=== PATIENT | female | born 1960 | race Caucasian/White ===

== ENCOUNTER → 2018-10-25 09:37 | Outpatient (CLI) | payer OTHER, MEDICAID, SELFPAY ==
[2018-10-25 11:00] LABS: Cholesterol 264 mg/dL (140-199); HDL Cholesterol 79 mg/dL (40-60); LDL Cholesterol Calculated 144 mg/dL (<100); Triglycerides 204 mg/dL (35-150)
== END ==
PROVIDERS: Registered Nurse; PCP Family Medicine; Visit Provider Family Medicine
DX: I10 Essential (primary) hypertension (principal)
CPT/HCPCS: 36415; 80061

== ENCOUNTER → 2018-12-06 09:19 | Outpatient (CLI) | payer OTHER, SELFPAY ==
[2018-12-06 11:01] LABS: Alanine Aminotransferase 37 IU/L (9-52); Albumin 4.6 g/dL (3.5-5.0); Albumin Globulin Ratio 1.6 (1.0-2.8); Alkaline Phosphatase 57 U/L (38-126); Aspartate Aminotransferase 31 IU/L (14-36); BUN Creatinine Ratio 24.3 (6-22); Bilirubin Total 0.3 mg/dL (0.2-1.3); Blood Urea Nitrogen 17 mg/dL (7-17); Calcium 9.7 mg/dL (8.4-10.2); Carbon Dioxide 30 mmol/L (22-32); Chloride 98 mmol/L (98-107); Estimated Glomerular Filt Rate > 60.0 mL/min (>60); Globulin 2.8 g/dL (1.7-4.1); Glucose 109 mg/dL (70-100); HEMOLYSIS < 15 (0-50); Sodium 138 mmol/L (137-145); Total Protein 7.4 g/dL (6.3-8.2)
== END ==
PROVIDERS: PCP Family Medicine; Visit Provider Registered Nurse
DX: I10 Essential (primary) hypertension (principal)
CPT/HCPCS: 36415; 80053

== ENCOUNTER → 2019-01-18 08:58 | Outpatient (CLI) | payer OTHER, SELFPAY ==
--- NOTE | 2019-01-18 09:00 | DI.RAD.S_ITS ---
PROCEDURE: XR THORACIC SPINE 3V INDICATIONS: s/p fall right arm, hip, leg pain TECHNIQUE: 2 views of the thoracic spine were acquired. COMPARISON: None. FINDINGS: Bones: No fractures or dislocations. No suspicious bony lesions. 12 pairs of ribs are noted, and appear intact where visualized. Soft tissues: No paravertebral stripe thickening. IMPRESSION: Thoracic spine without acute osseous abnormalities. Dictated by: Kwame Starks M.D. on 01/18/2019 at 10:16 Approved by: Kwame Starks M.D. on 01/18/2019 at 10:17
--- NOTE | 2019-01-18 09:00 | DI.RAD.S_ITS ---
PROCEDURE: XR LUMBAR SPINE MIN 4V INDICATIONS: s/p fall right arm, hip, leg pain TECHNIQUE: 2 views of the lumbar spine acquired. COMPARISON: None. FINDINGS: Bones: 5 nonrib-bearing vertebrae are present. There is normal bony alignment. No acute vertebral body compression fractures. Multilevel lumbar spondylosis throughout the visualized lumbar spine, but most pronounced at L5-S1. Mid and lower lumbar facet arthropathy. No suspicious bony lesions. Soft tissues: Overlying bowel gas pattern is normal. No suspicious soft tissue calcifications. Multiple surgical clips are noted in the pelvis. IMPRESSION: Lumbar spine without acute osseous abnormalities. Multilevel lumbar spondylosis. Dictated by: Kwame Starks M.D. on 01/18/2019 at 10:18 Approved by: Kwame Starks M.D. on 01/18/2019 at 10:19
--- NOTE | 2019-01-18 09:00 | DI.RAD.S_ITS ---
PROCEDURE: XR CERVICAL SPINE 2V OR 3V INDICATIONS: s/p fall right arm, hip, leg pain TECHNIQUE: 3 view(s) of the cervical spine were acquired. COMPARISON: None. FINDINGS: Bones: No fractures or dislocations to the T2 level. The lateral masses of C1 appear intact on the odontoid view. No suspicious bony lesions. Straightening of normal cervical lordosis. Multilevel cervical spondylosis most pronounced at C5-6. Soft tissues: No prevertebral soft tissue swelling. Visualized lung apices are clear. IMPRESSION: Cervical spine without acute osseous abnormalities. Minimal straightening of normal cervical lordosis likely related to positioning and/or concurrent muscle spasms. Cervical spondylosis most pronounced at C5-6. Dictated by: Kwame Starks M.D. on 01/18/2019 at 10:19 Approved by: Kwame Starks M.D. on 01/18/2019 at 10:21
== END ==
PROVIDERS: PCP Family Medicine; Visit Provider Nurse Practitioner
DX: M79.601 Pain in right arm (principal); M25.551 Pain in right hip; M79.604 Pain in right leg; M47.816 Spondylosis without myelopathy or radiculopathy, lumbar region; M47.817 Spondylosis without myelopathy or radiculopathy, lumbosacral region; M47.812 Spondylosis without myelopathy or radiculopathy, cervical region
CPT/HCPCS: 72040; 72072; 72100

== ENCOUNTER → 2019-06-18 13:14 | Outpatient (CLI) | payer OTHER, SELFPAY ==
--- NOTE | 2019-06-18 | DI.MRI.S_ITS ---
PROCEDURE: MR KNEE RT WO CON INDICATIONS: Pain in right knee TECHNIQUE: Noncontrast sagittal PD fast spin echo and T2 fast spin echo with fat saturation, sagittal 3-D FLASH with fat saturation; coronal T1 spin echo and PD fast spin echo with fat saturation, and axial PD fast spin echo with fat saturation through the knee. COMPARISON: None. FINDINGS: Image quality: Excellent. Menisci: Year-old [place] T2 signal intensity traverses the posterior horn medial meniscus, demonstrating inferior articular surface extension, indicating oblique tear. There is medial extrusion of the medial meniscus. Lateral meniscus is intact. Cruciate ligaments: The anterior and posterior cruciate ligaments appear intact. Medial structures: The medial collateral ligament appears intact. Visualized portions of the pes anserinus tendons appear normal. Small amount of medial bursal fluid. Lateral structures: The lateral collateral ligament, long and short heads of the biceps femoris tendon appear intact. The popliteus tendon appears normal. Iliotibial band appears normal. Anterior structures: The quadriceps and patellar tendons appear intact. Patellar alignment is normal. No femoral trochlear dysplasia or ventral trochlear prominence. No edema in the infrapatellar fat pad. Bones and cartilage: No bone marrow contusions or fractures. There is mild ill-defined T2 signal elevation within the weight-bearing aspect of the medial tibial plateau. There is moderate diffuse articular cartilage loss overlying the weightbearing aspects of the medial femoral condyle and medial tibial plateau. Mild diffuse articular cartilage loss overlies the weightbearing aspects of the lateral femoral condyle and lateral tibial plateau. Joint space: There is physiologic knee joint fluid. Trace Castro's cyst. Normal appearing synovial plicae are incidentally noted. IMPRESSION: 1. Tricompartmental osteophyte is with associated articular cartilage loss. 2. Medial meniscal tearing and extrusion. 3. Mild medial bursitis. Dictated by: Taylor House M.D. on 06/18/2019 at 14:58 Approved by: aTylor House M.D. on 06/18/2019 at 15:00
== END ==
PROVIDERS: PCP Family Medicine; Visit Provider Physician Assistant
DX: S83.241A Other tear of medial meniscus, current injury, right knee, initial encounter (principal)
CPT/HCPCS: 73721

== ENCOUNTER → 2020-07-18 10:29 | Outpatient (CLI) | payer OTHER, MEDICAID, SELFPAY ==
[2020-07-18 11:23] LABS: Add Manual Diff / Slide Review NO; Basophils Absolute Auto 100 /uL (0-100); Basophils Percent Auto 1.2 % (0-2); Eosinophils Absolute Auto 200 /uL (0-450); Eosinophils Percent Auto 5.4 % (2-4); Hematocrit 38.6 % (36-46); Hemoglobin 13.2 g/dL (12.0-16.0); Lymphocytes Absolute Auto 1400 /uL (1100-4500); Lymphocytes Percent Auto 32.2 % (25-40); Mean Corpuscular HGB Conc 34.2 % (30-36); Mean Corpuscular Volume 90.5 fL (80-100); Monocytes Absolute Auto 400 /uL (0-900); Monocytes Percent Auto 8.1 % (3-14); Neutrophils Absolute Auto 2300 /uL (1500-7000); Neutrophils Percent Auto 53.1 % (50-75); Platelet Count 129 X10^3/uL (150-400); Red Blood Cell Count 4.27 X10^6/uL (4.0-5.2); Red Cell Distribution Width 13.1 % (11.6-14.8); White Blood Cell Count 4.4 X10^3/uL (4.5-11.0)
[2020-07-18 11:34] LABS: Alanine Aminotransferase 27 IU/L (<35); Albumin 4.5 g/dL (3.5-5.0); Albumin Globulin Ratio 1.6 (1.0-2.8); Alkaline Phosphatase 51 U/L (38-126); Aspartate Aminotransferase 30 IU/L (14-36); BUN Creatinine Ratio 24.3 (6-22); Bilirubin Total 0.7 mg/dL (0.2-1.3); Blood Urea Nitrogen 17 mg/dL (7-17); Calcium 9.2 mg/dL (8.4-10.2); Carbon Dioxide 30 mmol/L (22-32); Chloride 102 mmol/L (98-107); Estimated Glomerular Filt Rate > 60.0 mL/min (>60); Globulin 2.8 g/dL (1.7-4.1); Glucose 110 mg/dL (70-100); HEMOLYSIS < 15 (0-50); Sodium 138 mmol/L (137-145); Total Protein 7.3 g/dL (6.3-8.2)
== END ==
PROVIDERS: PCP Family Medicine; Referring Provider Nurse Practitioner; Visit Provider Nurse Practitioner
DX: I10 Essential (primary) hypertension (principal)
CPT/HCPCS: 36415; 80053; 85025

== ENCOUNTER 2020-08-31 22:37 | Emergency (ER) | payer OTHER, MEDICAID, SELFPAY ==
[2020-08-31 22:44] VITALS: BP 191/114; PULSE 76; O2SAT 98
[2020-08-31 22:53] VITALS: BP 191/114; PULSE 75; RESP 12; TEMP 36.6; O2SAT 100; BMI 24.7
[2020-08-31 23:00] VITALS: PULSE 72; RESP 11; O2SAT 100
[2020-08-31 23:01] VITALS: BP 182/94; PULSE 74; RESP 10; O2SAT 99
--- NOTE | 2020-08-31 23:03 | DI.RAD.S_ITS ---
PROCEDURE: XR CHEST 1V INDICATIONS: Palpitations TECHNIQUE: One view of the chest was acquired. COMPARISON: None. FINDINGS: Surgical changes and devices: None. Lungs and pleura: Lungs are clear. No pleural effusions or pneumothorax. Mediastinum: Mediastinal contours appear normal. Heart size is normal. Bones and chest wall: No suspicious bony lesions. Overlying soft tissues appear unremarkable. IMPRESSION: No acute cardiopulmonary disease process. Dictated by: Ambar Gallego MD, PhD on 09/01/2020 at 8:50 Approved by: Ambar Gallego MD, PhD on 09/01/2020 at 8:50
--- NOTE | 2020-08-31 23:19 | ED.ARRPALP ---
HPI - Arrhythmia/Palpitations General Chief Complaint: Dizziness Stated Complaint: light headed, heart palpitations Time Seen by Provider: 08/31/20 23:02 Source: patient and family Mode of arrival: Ambulatory Limitations: no limitations History of Present Illness HPI narrative: Patient here with , complains 4 weeks of constant generalized weakness fatigue/no energy with intermittent palpitations and dizziness. Patient thought maybe her citalopram that was prescribed in April of this year is affecting her. She did see her family doctor/Dr. Anderson, this past 4 weeks and states they were just monitoring or blood pressure. Denies any chest pain. No chest pain. No dyspnea. No unilateral numbness tingling or weakness. No slurred speech or facial droop her confusion. No urinary complaints. Patient states she stopped taking her losartan 2 days ago. She takes 12.5 mg daily. She thought that may be affecting her because she thought her blood pressure was low. Last time she took her blood pressure and heart rate it was systolic 148 with a pulse of 48. Denies any thyroid disease. Patient states [address] [facility] [address] [place], she underwent ablation for SVT. Has been doing well since then. No recent Holter monitor. Patient here tonight because she felt dizziness worse tonight. Patient was at rest. No dizziness at this time. Blood pressure noted on arrival has improved. Again patient has been off her losartan complaint: palpitations Related Data Home Medications Medication Instructions Recorded Confirmed [CoQ10] #0 02/01/17 08/04/20 [Vitamin D3] #0 02/01/17 08/04/20 melatonin 10 mg PO QDAY #0 02/01/17 08/04/20 zolpidem 5 mg tablet 5 mg PO BEDTIME PRN 08/04/20 08/04/20 Previous Rx's Medication Instructions Recorded estradiol 1 mg tablet 1 mg PO QDAY #90 tab 06/11/19 lorazepam 0.5 mg tablet See Rx Instructions .ROUTE 06/03/20 .COMPLEX #30 tablet prednisone 20 mg tablet 20 mg PO DAILY #5 tab 08/04/20 citalopram 20 mg tablet 30 mg PO DAILY #60 tab 08/18/20 losartan 25 mg tablet 25 mg PO DAILY #60 tab 08/18/20 Allergies Allergy/AdvReac Type Severity Reaction Status Date / Time acetaminophen [From PERCOCET] Allergy Unknown Verified 08/04/20 09:22 erythromycin base Allergy Unknown Verified 08/04/20 09:22 [ERYTHROMYCIN BASE] oxycodone [From PERCOCET] Allergy Unknown Verified 08/04/20 09:22 Sulfa (Sulfonamide Allergy Unknown Verified 08/04/20 09:22 Antibiotics) [SULFA (SULFONAMIDE ANTIBIOTICS)] Review of Systems Review of Systems Narrative: GENERAL: Denies chills, complaining fatigue, malaise, denies fever, sweats. HEENT: Denies sinus pain, ear pain, sore throat, difficulty swallowing RESPIRATORY: Denies dyspnea, cough CARDIOVASCULAR: Denies chest pain, complains palpitations, denies edema, GASTROINTESTINAL: Denies nausea, vomiting, abdominal pain, diarrhea, constipation, melena. : Denies dysuria, frequency, hematuria MUSCULOSKELETAL: denies muscle or bony pain SKIN: Denies rash, skin lesions NEUROLOGIC: Denies weakness, headache, numbness, change in speech, confusion, complains dizziness PSYCHIATRIC: No SI or HI or hallucinations ROS Unobtainable: All systems reviewed & are unremarkable except as noted in HPI and below Patient History Medical History Anxiety and depression (Chronic 02/01/17) Chicken pox (Resolved) Constipation, chronic (Chronic 2003) Depression (Chronic) Eczema (Chronic) Fibroids (Resolved) Hemorrhoids (Chronic 1980) Herpes (Chronic 1979) History of bilateral breast implants (Resolved 02/21/17) History of cardiac radiofrequency ablation (RFA) (Chronic 02/01/17) History of supraventricular tachycardia (Chronic 02/01/17) Measles (Resolved) Mononucleosis (Resolved 1978) Mumps (Resolved) Psoriasis (Chronic 2011) PTSD (post-traumatic stress disorder) (Chronic 2009) SVT (supraventricular tachycardia) (Resolved 2014) Surgical History Anesthesia (Resolved) History of bilateral salpingo-oophorectomy (BSO) (Resolved 2004) History of breast augmentation (Resolved 2005) History of breast augmentation (Resolved 2013) History of cardiac radiofrequency ablation (RFA) (Resolved 2014) Status post hysterectomy (Resolved 2003) Family History Father Esophageal varices Grandmother ALS (amyotrophic lateral sclerosis) Grandfather Emphysema/COPD Grandmother Emphysema/COPD Brother No problems noted. Grandfather No problems noted. Mother Hearing loss Vision loss Sister No problems noted. Sister No problems noted. Social History Smoking Status: Never smoker alcohol intake: current substance use type: does not use Smoking Status: Never smoker Substance Use Type: does not use Exam Narrative Exam Narrative: GENERAL: patient appears stated age. Well-nourished, well-developed patient, in no distress, not toxic not dyspneic HEAD: Normocephalic. EYES: Pupils equal round and reactive. No scleral icterus. No injection no discharge ENT: Mucous membranes moist. No drooling no tongue elevation no trismus no malocclusion NECK: Trachea midline. Non tender, no thyromegaly CARDIOVASCULAR: Regular rate and rhythm without murmurs, gallops, or rubs. RESPIRATORY: Clear to auscultation. Breath sounds equal bilaterally. No wheezes, rales, or rhonchi. GASTROINTESTINAL: Abdomen soft, non-tender, nondistended. EXTREMITIES: No gross deformities. BACK: Nontender without deformity or crepitance. No flank tenderness. NEURO: AOx4. Clear speech no facial droop light touch intact to bilateral face hands and legs strong equal colorectal surgeon SKIN: Warm and dry PSYCH: Not anxious, is cooperative Initial Vital Signs Initial Vital Signs: Vital Signs Pulse Rate 76 08/31/20 22:44 Blood Pressure 191/114 H 08/31/20 22:44 Pulse Oximetry 98 08/31/20 22:44 Course Course Course Narrative: Patient had episode here of sensation of electrical sensation floating from her head down to her feet both sides. Orders Ordered: ED Orders 08/31/20 23:03 XR chest 1V Stat EKG-12 Lead Stat 08/31/20 23:30 Complete Blood Count AUTO DIFF Stat Comprehensive Metabolic Panel Stat D Dimer Stat Magnesium Stat Partial Thromboplastin Time Stat Prothrombin Time INR Stat Thyroid Stimulating Hormone Stat Troponin & CK Cardiac Panel Stat 08/31/20 23:37 CT head/brain wo con Stat Discontinued Medications Losartan Potassium (Cozaar) 12.5 mg PO NOW ONE Stop: 08/31/20 23:17 Last Admin: 08/31/20 23:45 Dose: 12.5 mg Documented by: DEZ Reevaluation(s) Reevaluation #1: Reviewed laboratory studies and imaging with patient and . Likely source at this time is hypothyroidism. Will need to follow-up with family doctor this week. To maybe start Synthroid. Also may need a Holter monitor scheduling with family doctor. Blood pressure improving after losartan. They desire discharge home. Time: 00:46 Consultations Consultation #1: Spoke with primary care medium cycle salesperson for Dr. Anderson, spoke with Dr. Flores, he will inform Dr. Anderson about results and visit tonight. Review of thyroid studies as well as possible Holter monitor outpatient. Time: 00:47 Vital Signs Vital signs: Vital Signs - 8 hr 08/31/20 22:44 08/31/20 22:53 08/31/20 23:00 Temperature 97.9 F Pulse Rate 76 75 72 Respiratory Rate 12 11 L Blood Pressure 191/114 H 191/114 H Pulse Oximetry 98 100 100 08/31/20 23:01 08/31/20 23:45 08/31/20 23:57 Temperature Pulse Rate 74 64 Respiratory Rate 10 L 22 Blood Pressure 182/94 H 168/102 H Pulse Oximetry 99 98 09/01/20 00:00 09/01/20 00:30 Temperature Pulse Rate 57 L 62 Respiratory Rate 12 16 Blood Pressure 155/87 H 166/81 H Pulse Oximetry 94 95 MDM - Arrhythmia/Palpitations Differential Diagnosis Differential diagnosis: Likely palpitations, anxiety, sinus tachycardia, artial fibrillation, artial flutter, ventricular premature beats, supraventricular tachycardia, WPW and other Lab Data Attestation: I reviewed the patient's lab results. Result diagrams: 08/31/20 23:30 08/31/20 23:30 Labs: Lab Results 08/31/20 08/31/20 08/31/20 Range/Units 23:30 23:30 23:30 WBC 4.7 (4.5-11.0) X10^3/uL RBC 4.14 (4.0-5.2) X10^6/uL Hgb 13.0 (12.0-16.0) g/dL Hct 38.2 (36-46) % MCV 92.2 (80-100) fL MCH 31.5 (26-34) PG MCHC 34.1 (30-36) % RDW 13.1 (11.6-14.8) % Plt Count 127 L (150-400) X10^3/uL Neut % (Auto) 51.7 (50-75) % Lymph % (Auto) 31.4 (25-40) % [place] % (Auto) 9.5 (3-14) % Eos % (Auto) 6.3 H (2-4) % Baso % (Auto) 1.1 (0-2) % Neut # (Auto) 2400 (8403-9829) /uL Lymph # (Auto) 1500 (3431-3527) /uL [place] # (Auto) 400 (0-900) /uL Eos # (Auto) 300 (0-450) /uL Baso # (Auto) 100 (0-100) /uL PT 10.9 (10.1-12.7) SECONDS INR 0.9 (0.9-1.3) APTT 32 (26.4-36.2) SECONDS D-Dimer < 200 (<230) ng/mL Sodium 138 (137-145) mmol/L Potassium 3.3 L (3.4-5.1) mmol/L Chloride 105 (98-107) mmol/L Carbon Dioxide 29 (22-32) mmol/L BUN 17 (7-17) mg/dL Creatinine 0.69 (0.52-1.04) mg/dL Estimated GFR > 60.0 (>60) mL/min BUN/Creatinine Ratio 24.6 H (6-22) Glucose 131 H (70-100) mg/dL Calcium 9.4 (8.4-10.2) mg/dL Magnesium 2.1 (1.6-2.3) mg/dL Total Bilirubin 0.4 (0.2-1.3) mg/dL AST 30 (14-36) IU/L ALT 26 (<35) IU/L Alkaline Phosphatase 57 (38-126) U/L Total Creatine Kinase 104 (30-135) U/L CK-MB (CK-2) 1.01 (<2.37) ng/mL CK-MB (CK-2) Rel Index 1.0 L (1.5-5.0) % Troponin I < 0.012 (0.01-0.034) ng/mL Total Protein 7.2 (6.3-8.2) g/dL Albumin 4.3 (3.5-5.0) g/dL Globulin 2.9 (1.7-4.1) g/dL Albumin/Globulin Ratio 1.5 (1.0-2.8) TSH (0.47-4.68) uIU/mL 08/31/20 Range/Units 23:30 WBC (4.5-11.0) X10^3/uL RBC (4.0-5.2) X10^6/uL Hgb (12.0-16.0) g/dL Hct (36-46) % MCV (80-100) fL MCH (26-34) PG MCHC (30-36) % RDW (11.6-14.8) % Plt Count (150-400) X10^3/uL Neut % (Auto) (50-75) % Lymph % (Auto) (25-40) % [place] % (Auto) (3-14) % Eos % (Auto) (2-4) % Baso % (Auto) (0-2) % Neut # (Auto) (2490-4779) /uL Lymph # (Auto) (3113-1225) /uL [place] # (Auto) (0-900) /uL Eos # (Auto) (0-450) /uL Baso # (Auto) (0-100) /uL PT (10.1-12.7) SECONDS INR (0.9-1.3) APTT (26.4-36.2) SECONDS D-Dimer (<230) ng/mL Sodium (137-145) mmol/L Potassium (3.4-5.1) mmol/L Chloride (98-107) mmol/L Carbon Dioxide (22-32) mmol/L BUN (7-17) mg/dL Creatinine (0.52-1.04) mg/dL Estimated GFR (>60) mL/min BUN/Creatinine Ratio (6-22) Glucose (70-100) mg/dL Calcium (8.4-10.2) mg/dL Magnesium (1.6-2.3) mg/dL Total Bilirubin (0.2-1.3) mg/dL AST (14-36) IU/L ALT (<35) IU/L Alkaline Phosphatase (38-126) U/L Total Creatine Kinase (30-135) U/L CK-MB (CK-2) (<2.37) ng/mL CK-MB (CK-2) Rel Index (1.5-5.0) % Troponin I (0.01-0.034) ng/mL Total Protein (6.3-8.2) g/dL Albumin (3.5-5.0) g/dL Globulin (1.7-4.1) g/dL Albumin/Globulin Ratio (1.0-2.8) TSH 9.56 H (0.47-4.68) uIU/mL Urine Dip Bedside Urine Glucose Negative Bedside Urine Bilirubin - Negative Bedside Urine Ketone - Negative Urine Specific [place] 1.015 Bedside Urine Occult Blood - Negative Bedside Urine pH 6.5 Bedside Urine Protein - Negative Bedside Urine Urobilinogen - Negative Bedside Urine Nitrite - Negative Bedside Urine Leukocytes - Negative Esterase Imaging Data Chest x-ray: Radiologist's Impresson: No acute process/no significant abnormalities. Lungs are clear without acute infiltrates, heart size is normal. No acute bony abnormalities CT scan - head: Radiologist's Impresson: No significant abnormalities. ECG Data Attestation: I personally reviewed and interpreted this ECG as follows: Interpretation: Normal sinus rhythm with sinus arrhythmia no ST elevation or depression rate 78 MDM Narrative Medical decision making narrative: Appropriate for discharge home. Reviewed results with primary care medium cycle salesperson, likely source of symptoms. Agrees for discharge home and follow-up with primary care. Dr. Anderson to start Synthroid/evaluate patient 1st Discharge Plan Departure Patient Disposition: Home Clinical Impression: Heart palpitations Hypothyroidism Qualifiers: Hypothyroidism type: unspecified Qualified Code(s): E03.9 - Hypothyroidism, unspecified Discharge Date/Time: 09/01/20 01:01 Instructions: DI for Hypothyroidism, DI for Palpitations Activity Restrictions/Additional Instructions: Please resume taking your blood pressure medication. See family doctor this week for recheck and evaluation of thyroid studies and for possible scheduled for outpatient Holter monitor. Call your hide spreader as well for follow-up regarding palpitations. Return if worse or if any questions or concerns. Prescriptions: No Action zolpidem 5 mg tablet 5 mg PO BEDTIME PRNRF: 0 prednisone 20 mg tablet 20 mg PO DAILY Qty: 5 RF: 0 [CoQ10] Qty: 0 RF: 0 [Vitamin D3] Qty: 0 RF: 0 melatonin 10 MG tablet 10 mg PO QDAY Qty: 0 RF: 0 estradiol 1 mg tablet 1 mg PO QDAY Qty: 90 RF: 5 lorazepam 0.5 mg tablet See Rx Instructions .ROUTE .COMPLEX Qty: 30 RF: 0 losartan 25 mg tablet 25 mg PO DAILY Qty: 60 RF: 0 citalopram 20 mg tablet 30 mg PO DAILY Qty: 60 RF: 0 Referrals: Kalani Anderson MD [Primary Care Provider] -
--- NOTE | 2020-08-31 23:37 | DI.CT.S_ITS ---
PROCEDURE: CT HEAD/BRAIN WO CON INDICATIONS: Dizziness TECHNIQUE: Noncontrast 4.5 mm thick angled axial sections acquired from the foramen magnum to the vertex, with coronal and sagittal reformats. For radiation dose reduction, the following was used: automated exposure control, adjustment of mA and/or kV according to patient size. COMPARISON: None. FINDINGS: Image quality: Excellent. CSF spaces: Basal cisterns are patent. No extra-axial fluid collections. Ventricles are normal in size and shape. Brain: No midline shift. No intracranial masses or hemorrhage. Cruz-white matter interface is normal. Skull and face: Calvarium and visualized facial bones are intact, without suspicious lesions. Sinuses: Visualized sinuses and mastoids are clear. IMPRESSION: No acute intracranial disease process. Dictated by: Ambar Gallego MD, PhD on 09/01/2020 at 7:17 Approved by: Ambar Gallego MD, PhD on 09/01/2020 at 7:18
[2020-08-31 23:45] VITALS: BP 168/102
[2020-08-31] MEDS: LOSARTAN 25 MG TABLET 12.5 MG PO (23:45)
[2020-08-31 23:46] LABS: Add Manual Diff / Slide Review NO; Basophils Absolute Auto 100 /uL (0-100); Basophils Percent Auto 1.1 % (0-2); Eosinophils Absolute Auto 300 /uL (0-450); Eosinophils Percent Auto 6.3 % (2-4); Hematocrit 38.2 % (36-46); Lymphocytes Absolute Auto 1500 /uL (1100-4500); Lymphocytes Percent Auto 31.4 % (25-40); Mean Corpuscular HGB Conc 34.1 % (30-36); Mean Corpuscular Hemoglobin 31.5 PG (26-34); Mean Corpuscular Volume 92.2 fL (80-100); Monocytes Absolute Auto 400 /uL (0-900); Monocytes Percent Auto 9.5 % (3-14); Neutrophils Absolute Auto 2400 /uL (1500-7000); Neutrophils Percent Auto 51.7 % (50-75); Platelet Count 127 X10^3/uL (150-400); Red Blood Cell Count 4.14 X10^6/uL (4.0-5.2); Red Cell Distribution Width 13.1 % (11.6-14.8); White Blood Cell Count 4.7 X10^3/uL (4.5-11.0)
[2020-08-31 23:47] LABS: INR 0.9 (0.9-1.3); Prothrombin Time 10.9 SECONDS (10.1-12.7)
[2020-08-31 23:50] LABS: PTT Partial Thromboplastin Tim 32 SECONDS (26.4-36.2)
[2020-08-31 23:51] LABS: D Dimer < 200 ng/mL (<230)
[2020-08-31 23:52] LABS: Alanine Aminotransferase 26 IU/L (<35); Albumin 4.3 g/dL (3.5-5.0); Albumin Globulin Ratio 1.5 (1.0-2.8); Alkaline Phosphatase 57 U/L (38-126); Aspartate Aminotransferase 30 IU/L (14-36); BUN Creatinine Ratio 24.6 (6-22); Bilirubin Total 0.4 mg/dL (0.2-1.3); Blood Urea Nitrogen 17 mg/dL (7-17); Calcium 9.4 mg/dL (8.4-10.2); Carbon Dioxide 29 mmol/L (22-32); Chloride 105 mmol/L (98-107); Creatine Kinase 104 U/L (30-135); Estimated Glomerular Filt Rate > 60.0 mL/min (>60); Globulin 2.9 g/dL (1.7-4.1); Glucose 131 mg/dL (70-100); HEMOLYSIS < 15 (0-50); Magnesium 2.1 mg/dL (1.6-2.3); Potassium 3.3 mmol/L (3.4-5.1); Sodium 138 mmol/L (137-145); Total Protein 7.2 g/dL (6.3-8.2)
[2020-08-31 23:57] VITALS: PULSE 64; RESP 22; O2SAT 98
[2020-09-01] VITALS: BP 155/87; PULSE 57; RESP 12; O2SAT 94
[2020-09-01 00:04] LABS: Troponin I < 0.012 ng/mL (0.01-0.034)
[2020-09-01 00:07] LABS: Creatine Kinase MB 1.01 ng/mL (<2.37)
[2020-09-01 00:30] VITALS: BP 166/81; PULSE 62; RESP 16; O2SAT 95
[2020-09-01 00:32] LABS: Thyroid Stimulating Hormone 9.56 uIU/mL (0.47-4.68)
== END 2020-09-01 01:01 | disposition home or self-care (01) ==
PROVIDERS: Emergency Provider Emergency Medicine; PCP Family Medicine
DX: R00.2 Palpitations (principal); E03.9 Hypothyroidism, unspecified
CPT/HCPCS: 36415; 70450; 71045; 80053; 81003; 82550; 82553; 83735; 84443; 84484; 85025; 85379; 85610; 85730; 93005; 99284

== ENCOUNTER → 2020-09-01 13:04 | Outpatient (CLI) | payer OTHER, MEDICAID, SELFPAY ==
[2020-09-01 13:38] LABS: Free T3, Triiodothyronine Free 3.53 pg/mL (2.77-5.27); Free T4, Direct Thyroxine 1.03 ng/dL (0.78-2.19)
== END ==
PROVIDERS: PCP Family Medicine; Visit Provider Family Medicine
DX: E03.9 Hypothyroidism, unspecified (principal); R00.2 Palpitations
CPT/HCPCS: 84439; 84481

== ENCOUNTER 2020-09-24 14:11 | Emergency (ER) | payer OTHER, MEDICAID, SELFPAY ==
[2020-09-24] VITALS (8 sets, daily range): BP systolic 105–155; BP diastolic 61–94; PULSE 59–83; RESP 16–23; TEMP 36.4; O2SAT 95–99; BMI 23.0
--- NOTE | 2020-09-24 14:37 | ED.GENADULT ---
HPI - General Adult General Chief complaint: Hypertension Stated complaint: blood pressure up and feels terrible Time Seen by Provider: 09/24/20 14:25 Source: patient Mode of arrival: Ambulatory Limitations: no limitations History of Present Illness HPI narrative: The patient was at work, she is an employee at this hospital. She developed dizziness. She has no visual changes, no confusion, no speech changes. She has no focal numbness or weakness. She has no poor balance issues. She describes eating and drinking well. She denies headache. She has no sore throat, no chest pain, palpitations or dyspnea. She is not coughing. She has had no fever or chills. She denies recent illness. She does complain of intermittent diarrhea and constipation, she has no diagnosis of chronic GI symptoms. She was recently diagnosed with hypothyroidism, she was started on thyroid replacement approximately 1 months ago. GI symptoms persisted before then. She complains of feeling wonky. She had intermittent, similar symptoms before the diagnosis of hypothyroidism. She takes medications for hyperthyroidism as well as depression and anxiety. She has a history of SVT. She feels like her blood pressure is elevated, she has been compliant with medications. She was 155 systolic upon arrival. She reports she is normal 130-140 at home. Related Data Home Medications Medication Instructions Recorded Confirmed [Vitamin D3] #0 02/01/17 09/02/20 zolpidem 5 mg tablet 5 mg PO BEDTIME PRN 08/04/20 09/02/20 Previous Rx's Medication Instructions Recorded estradiol 1 mg tablet 1 mg PO QDAY #90 tab 06/11/19 lorazepam 0.5 mg tablet See Rx Instructions .ROUTE 06/03/20 .COMPLEX #30 tablet citalopram 20 mg tablet 30 mg PO DAILY #60 tab 08/18/20 losartan 25 mg tablet 25 mg PO DAILY #60 tab 08/18/20 levothyroxine 50 mcg capsule 50 mcg PO DAILY #30 cap 09/02/20 Allergies Allergy/AdvReac Type Severity Reaction Status Date / Time acetaminophen [From PERCOCET] Allergy Unknown Verified 09/24/20 14:32 erythromycin base Allergy Unknown Verified 09/24/20 14:32 [ERYTHROMYCIN BASE] oxycodone [From PERCOCET] Allergy Unknown Verified 09/24/20 14:32 Sulfa (Sulfonamide Allergy Unknown Verified 09/24/20 14:32 Antibiotics) [SULFA (SULFONAMIDE ANTIBIOTICS)] Review of Systems Constitutional Constitutional: Reports system reviewed and no additional complaints, except as documented Eyes Eyes: Denies change in vision and Denies loss of vision ENT Ears, Nose, Mouth, and Throat: Denies change in voice, Reports dizziness, Denies neck pain and Denies sore throat Cardiovascular Cardiovascular: Denies chest pain, Denies irregular heart rhythm, Denies lightheadedness, Denies palpitations and Denies dyspnea Respiratory Respiratory: Denies cough, Denies dyspnea and Denies wheezing Gastrointestinal Gastrointestinal: Denies abdominal pain, Denies change in bowel habits, Denies diarrhea, Denies nausea and Denies vomiting Musculoskeletal Musculoskeletal: Denies back pain and Denies neck pain Integumentary/Breasts Skin/Breast: Denies pruritus, Denies erythema, Denies rash and Denies wounds Neurologic Neurologic: Denies confusion, Reports dizziness and Denies loss of vision Psychiatric Psychiatric: Denies anxiety, Denies confusion and Denies depression Endocrine Endocrine: Denies palpitations Allergic/Immunologic Allergic/Immunologic: Denies wheezing Patient History Medical History (Updated 09/24/20 @ 16:30 by Michel Valentin MD) Anxiety and depression (02/01/17) Chicken pox Constipation, chronic (2003) Depression Eczema Fibroids Hemorrhoids (1980) Herpes (1979) History of bilateral breast implants (02/21/17) History of cardiac radiofrequency ablation (RFA) (02/01/17) History of supraventricular tachycardia (02/01/17) Measles Mononucleosis (1978) Mumps Psoriasis (2011) PTSD (post-traumatic stress disorder) (2009) SVT (supraventricular tachycardia) (2014) Surgical History Anesthesia History of bilateral salpingo-oophorectomy (BSO) (2004) History of breast augmentation (2005) History of breast augmentation (2013) History of cardiac radiofrequency ablation (RFA) (2014) Status post hysterectomy (2003) Family History Father Esophageal varices Grandmother ALS (amyotrophic lateral sclerosis) Grandfather Emphysema/COPD Grandmother Emphysema/COPD Brother No problems noted. Grandfather No problems noted. Mother Hearing loss Vision loss Sister No problems noted. Sister No problems noted. Social History Smoking Status: Never smoker alcohol intake: current substance use type: does not use Smoking Status: Never smoker Substance Use Type: does not use Exam Initial Vital Signs Initial Vital Signs: Vital Signs Temperature 97.6 F 09/24/20 14:15 Pulse Rate 83 09/24/20 14:15 Respiratory Rate 16 09/24/20 14:15 Blood Pressure 155/94 H 09/24/20 14:15 Pulse Oximetry 96 09/24/20 14:15 Const General: cooperative and well developed Nutritional Appearance: well nourished [facility] Head: normocephalic and atraumatic Ears: external ears normal and TM's normal bilaterally Nose: external nose normal Face and sinus: sinuses nontender Mouth: oral mucosae normal Throat: tonsils normal and uvula midline Eyes General: appearance normal, both eyes and all related structures Eyelids: eyelids normal Conjunctivae: conjunctivae normal Sclera: sclerae normal Pupils: PERRL EOM: EOM intact bilaterally Neck Neck: full ROM, No lymphadenopathy and No JVD Resp Effort & Inspection: normal respiratory effort and able to speak in complete sentences Auscultation: clear to auscultation bilaterally, no rales, no rhonchi and no wheezes Cardio Rate: regular rate Rhythm: regular rhythm Heart Sounds: S1 normal, S2 normal, no click, no gallops, no murmurs and no rubs Pulses: normal peripheral pulses GI Inspection: non-distended Palpation: soft, no hepatosplenomegaly and No guarding Auscultation: normal bowel sounds Back/Spine/Pelvis Back: No CVA tenderness Cervical Spine: cervical ROM normal and No pain with cervical ROM Thoracic/Lumbar Spine: thoracic and lumbar spine normal to inspection Skin General: no rashes or lesions noted, No jaundice and No petechiae Neuro General: patient alert, patient oriented x3, gait normal and no focal motor deficits Speech: speech normal Other: Knee jerks: 3+ symmetric. Extrem General: full ROM, no pedal edema and no calf tenderness Psych Appearance: well kempt Mental Status: mental status grossly normal Thought Content: suicidality Course Course Course Narrative: The patient has been clinically stable since arrival. She has vague sense is of illness. He does know that she has hyperglycemia and subtle changes still LFTs. Although other labs are marginally abnormal, they are reassuring there is no evidence of acute coronary syndrome. There is no evidence of significant infection. There is no significant lab abnormalities met me the for current symptoms. I suspect she is still suffering from the thyroid disorder, symptoms will simply take time to resolve. She is advised to follow-up with her doctor and review her thyroid care. Orders Ordered: ED Orders 09/24/20 14:25 Complete Blood Count AUTO DIFF Stat Comprehensive Metabolic Panel Stat Lipase Stat Partial Thromboplastin Time Stat Prothrombin Time INR Stat Troponin & CK Cardiac Panel Stat 09/24/20 15:00 XR chest 1V Stat EKG-12 Lead Stat Vital Signs Vital signs: Vital Signs - 8 hr 09/24/20 14:15 09/24/20 14:37 09/24/20 15:00 Temperature 97.6 F Pulse Rate 83 64 71 Respiratory Rate 16 Blood Pressure 155/94 H 146/81 H Pulse Oximetry 96 99 99 09/24/20 15:31 09/24/20 15:32 09/24/20 16:00 Temperature Pulse Rate 66 59 L 59 L Respiratory Rate 23 Blood Pressure 146/71 H 114/61 Pulse Oximetry 96 97 95 09/24/20 16:30 09/24/20 16:31 Temperature Pulse Rate 75 63 Respiratory Rate Blood Pressure 105/68 Pulse Oximetry 95 99 Medical Decision Making Lab Data Result diagrams: 09/24/20 14:25 09/24/20 14:25 Labs: Lab Results 09/24/20 09/24/20 09/24/20 Range/Units 14:25 14:25 14:25 WBC 6.1 (4.5-11.0) X10^3/uL RBC 4.18 (4.0-5.2) X10^6/uL Hgb 12.9 (12.0-16.0) g/dL Hct 38.1 (36-46) % MCV 91.1 (80-100) fL MCH 30.9 (26-34) PG MCHC 33.9 (30-36) % RDW 13.2 (11.6-14.8) % Plt Count 117 L (150-400) X10^3/uL Neut % (Auto) 56.4 (50-75) % Lymph % (Auto) 30.9 (25-40) % [place] % (Auto) 7.6 (3-14) % Eos % (Auto) 4.1 H (2-4) % Baso % (Auto) 1.0 (0-2) % Neut # (Auto) 3500 (4352-6720) /uL Lymph # (Auto) 1900 (0577-6459) /uL [place] # (Auto) 500 (0-900) /uL Eos # (Auto) 200 (0-450) /uL Baso # (Auto) 100 (0-100) /uL PT 11.9 (10.1-12.7) SECONDS INR 1.0 (0.9-1.3) APTT 32 (26.4-36.2) SECONDS Sodium 135 L (137-145) mmol/L Potassium 3.6 (3.4-5.1) mmol/L Chloride 101 (98-107) mmol/L Carbon Dioxide 30 (22-32) mmol/L BUN 19 H (7-17) mg/dL Creatinine 0.63 (0.52-1.04) mg/dL Estimated GFR > 60.0 (>60) mL/min BUN/Creatinine Ratio 30.2 H (6-22) Glucose 160 H (70-100) mg/dL Calcium 9.3 (8.4-10.2) mg/dL Total Bilirubin 0.4 (0.2-1.3) mg/dL AST 47 H (14-36) IU/L ALT 51 H (<35) IU/L Alkaline Phosphatase 61 (38-126) U/L Total Creatine Kinase 85 (30-135) U/L CK-MB (CK-2) TNP CK-MB (CK-2) Rel Index TNP Troponin I < 0.012 (0.01-0.034) ng/mL Total Protein 7.2 (6.3-8.2) g/dL Albumin 4.4 (3.5-5.0) g/dL Globulin 2.8 (1.7-4.1) g/dL Albumin/Globulin Ratio 1.6 (1.0-2.8) Lipase 62 (23-300) U/L Urine Dip Bedside Urine Glucose Negative Bedside Urine Bilirubin - Negative Bedside Urine Ketone - Negative Urine Specific [place] 1.015 Bedside Urine Occult Blood - Negative Bedside Urine pH 6.0 Bedside Urine Protein - Negative Bedside Urine Urobilinogen 0.2 Bedside Urine Nitrite - Negative Bedside Urine Leukocytes - Negative Esterase Point of care testing: Urine Dip Bedside Urine Glucose Negative Bedside Urine Bilirubin - Negative Bedside Urine Ketone - Negative Urine Specific [place] 1.015 Bedside Urine Occult Blood - Negative Bedside Urine pH 6.0 Bedside Urine Protein - Negative Bedside Urine Urobilinogen 0.2 Bedside Urine Nitrite - Negative Bedside Urine Leukocytes - Negative Esterase Imaging Data Chest x-ray: Radiologist's Impression: [address] [id number] ReportSigned Patient: Inna White SMR#: [id number]: [id number]:[id number]/Sex: 60 / FDate of Service: 09/24/20Loc: EDAccession Number: [id number] Procedure: XR chest 1V Ordering Provider: Michel Valentin MD PROCEDURE: XR CHEST 1V INDICATIONS: chest pain TECHNIQUE: One view of the chest was acquired. COMPARISON: [facility], , XR CHEST 1V, 08/31/2020, 23:06. FINDINGS: Surgical changes and devices: None. Lungs and pleura: Lungs are clear. No pleural effusions or pneumothorax. Mediastinum: Mediastinal contours appear normal. Heart size is normal. Bones and chest wall: No suspicious bony lesions. Overlying soft tissues appear unremarkable. IMPRESSION: Normal for age, source of current chest pain symptoms is not seen. Dictated by: Bubba Gary M.D. on 09/24/2020 at 15:47 Approved by: Bubba Gary M.D. on 09/24/2020 at 15:48 ECG Data Attestation: I personally reviewed and interpreted this ECG as follows: (Normal sinus rhythm rate 63 beats per minute. Low-voltage QRS in the anterior leads. Nonspecific ST T wave changes. No ectopy.) Discharge Plan Departure Patient Disposition: Home Clinical Impression: Acute hyperglycemia, Elevated LFTs Hypothyroidism Qualifiers: Hypothyroidism type: unspecified Qualified Code(s): E03.9 - Hypothyroidism, unspecified Instructions: DI for Hyperglycemia -- Adult, DI for Hypothyroidism Activity Restrictions/Additional Instructions: Continue your current medications. Be sure you are drinking plenty of fluids at all times. Contact her doctor to review your treatment for hypothyroidism. It is noted that her glucose level was little high, follow-up feet have this re-evaluated. Prescriptions: No Action zolpidem 5 mg tablet 5 mg PO BEDTIME PRNRF: 0 levothyroxine 50 mcg capsule 50 mcg PO DAILY Qty: 30 RF: 2 [Vitamin D3] Qty: 0 RF: 0 estradiol 1 mg tablet 1 mg PO QDAY Qty: 90 RF: 5 lorazepam 0.5 mg tablet See Rx Instructions .ROUTE .COMPLEX Qty: 30 RF: 0 losartan 25 mg tablet 25 mg PO DAILY Qty: 60 RF: 0 citalopram 20 mg tablet 30 mg PO DAILY Qty: 60 RF: 0 Referrals: Kalani Anderson MD [Primary Care Provider] -
--- NOTE | 2020-09-24 15:00 | DI.RAD.S_ITS ---
PROCEDURE: XR CHEST 1V INDICATIONS: chest pain TECHNIQUE: One view of the chest was acquired. COMPARISON: [facility], CR, XR CHEST 1V, 08/31/2020, 23:06. FINDINGS: Surgical changes and devices: None. Lungs and pleura: Lungs are clear. No pleural effusions or pneumothorax. Mediastinum: Mediastinal contours appear normal. Heart size is normal. Bones and chest wall: No suspicious bony lesions. Overlying soft tissues appear unremarkable. IMPRESSION: Normal for age, source of current chest pain symptoms is not seen. Dictated by: Bubba Gary M.D. on 09/24/2020 at 15:47 Approved by: Bubba Gary M.D. on 09/24/2020 at 15:48
[2020-09-24 15:05] LABS: Add Manual Diff / Slide Review NO; Basophils Absolute Auto 100 /uL (0-100); Eosinophils Absolute Auto 200 /uL (0-450); Eosinophils Percent Auto 4.1 % (2-4); Hematocrit 38.1 % (36-46); Hemoglobin 12.9 g/dL (12.0-16.0); Lymphocytes Absolute Auto 1900 /uL (1100-4500); Lymphocytes Percent Auto 30.9 % (25-40); Mean Corpuscular HGB Conc 33.9 % (30-36); Mean Corpuscular Hemoglobin 30.9 PG (26-34); Mean Corpuscular Volume 91.1 fL (80-100); Monocytes Absolute Auto 500 /uL (0-900); Monocytes Percent Auto 7.6 % (3-14); Neutrophils Absolute Auto 3500 /uL (1500-7000); Neutrophils Percent Auto 56.4 % (50-75); Platelet Count 117 X10^3/uL (150-400); Red Blood Cell Count 4.18 X10^6/uL (4.0-5.2); Red Cell Distribution Width 13.2 % (11.6-14.8); White Blood Cell Count 6.1 X10^3/uL (4.5-11.0)
[2020-09-24 15:07] LABS: Prothrombin Time 11.9 SECONDS (10.1-12.7)
[2020-09-24 15:09] LABS: PTT Partial Thromboplastin Tim 32 SECONDS (26.4-36.2)
[2020-09-24 15:14] LABS: Alanine Aminotransferase 51 IU/L (<35); Albumin 4.4 g/dL (3.5-5.0); Albumin Globulin Ratio 1.6 (1.0-2.8); Alkaline Phosphatase 61 U/L (38-126); Aspartate Aminotransferase 47 IU/L (14-36); BUN Creatinine Ratio 30.2 (6-22); Bilirubin Total 0.4 mg/dL (0.2-1.3); Blood Urea Nitrogen 19 mg/dL (7-17); Calcium 9.3 mg/dL (8.4-10.2); Carbon Dioxide 30 mmol/L (22-32); Chloride 101 mmol/L (98-107); Creatine Kinase 85 U/L (30-135); Estimated Glomerular Filt Rate > 60.0 mL/min (>60); Globulin 2.8 g/dL (1.7-4.1); Glucose 160 mg/dL (70-100); HEMOLYSIS < 15 (0-50); Lipase 62 U/L (23-300); Potassium 3.6 mmol/L (3.4-5.1); Sodium 135 mmol/L (137-145); Total Protein 7.2 g/dL (6.3-8.2)
[2020-09-24 15:24] LABS: Troponin I < 0.012 ng/mL (0.01-0.034)
== END 2020-09-24 17:06 | disposition home or self-care (01) ==
PROVIDERS: Emergency Provider Emergency Medicine; PCP Family Medicine
DX: R73.9 Hyperglycemia, unspecified (principal); E03.9 Hypothyroidism, unspecified; I10 Essential (primary) hypertension; R07.9 Chest pain, unspecified
CPT/HCPCS: 36415; 71045; 80053; 81003; 82550; 83690; 84484; 85025; 85610; 85730; 99283; 99284

== ENCOUNTER → 2020-10-01 06:57 | Outpatient (CLI) | payer OTHER, MEDICAID, SELFPAY ==
[2020-10-01 07:22] LABS: Hemoglobin A1C% w Est Avg Glu 5.8 % (4.0-6.0)
[2020-10-01 07:27] LABS: Alanine Aminotransferase 38 IU/L (<35); Albumin 4.2 g/dL (3.5-5.0); Albumin Globulin Ratio 1.4 (1.0-2.8); Alkaline Phosphatase 52 U/L (38-126); Aspartate Aminotransferase 35 IU/L (14-36); BUN Creatinine Ratio 24.2 (6-22); Bilirubin Total 0.5 mg/dL (0.2-1.3); Blood Urea Nitrogen 15 mg/dL (7-17); Calcium 8.9 mg/dL (8.4-10.2); Carbon Dioxide 33 mmol/L (22-32); Chloride 104 mmol/L (98-107); Estimated Glomerular Filt Rate > 60.0 mL/min (>60); Globulin 2.9 g/dL (1.7-4.1); Glucose 109 mg/dL (70-100); HEMOLYSIS < 15 (0-50); Potassium 3.9 mmol/L (3.4-5.1); Sodium 137 mmol/L (137-145); Total Protein 7.1 g/dL (6.3-8.2)
[2020-10-01 11:34] LABS: Cholesterol 239 mg/dL (140-199); HDL Cholesterol 57 mg/dL (40-60); LDL Cholesterol Calculated 163 mg/dL (<100); Triglycerides 96 mg/dL (35-150)
== END ==
PROVIDERS: PCP Family Medicine; Referring Provider Family Medicine; Visit Provider Family Medicine
DX: R73.9 Hyperglycemia, unspecified (principal); R79.89 Other specified abnormal findings of blood chemistry
CPT/HCPCS: 80053; 80061; 83036

== ENCOUNTER → 2020-10-07 11:51 | Outpatient (CLI) | payer OTHER, MEDICAID, SELFPAY ==
[2020-10-07 13:35] LABS: Thyroid Stimulating Hormone 1.22 uIU/mL (0.47-4.68)
== END ==
PROVIDERS: PCP Family Medicine; Referring Provider Family Medicine; Visit Provider Family Medicine
DX: E03.9 Hypothyroidism, unspecified (principal)
CPT/HCPCS: 36415; 84443

== ENCOUNTER → 2020-12-11 12:28 | Outpatient (CLI) | payer OTHER, MEDICAID, SELFPAY ==
[2020-12-11 13:33] LABS: Free T4, Direct Thyroxine 1.08 ng/dL (0.78-2.19)
[2020-12-11 13:47] LABS: Thyroid Stimulating Hormone 1.41 uIU/mL (0.47-4.68)
[2020-12-12 06:28] LABS: Thyroid Peroxidase Antibodies 18 IU/mL (0-34)
== END ==
PROVIDERS: PCP Family Medicine; Referring Provider Family Medicine; Visit Provider Family Medicine
DX: E03.9 Hypothyroidism, unspecified (principal)
CPT/HCPCS: 36415; 84439; 84443; 86376

== ENCOUNTER → 2021-03-04 09:05 | Outpatient (CLI) | payer OTHER, MEDICAID, SELFPAY ==
[2021-03-04 11:50] LABS: COVID19 -Nasal RAPID Negative (Negative)
== END ==
PROVIDERS: PCP Family Medicine; Visit Provider Physician Assistant
DX: Z11.59 Encounter for screening for other viral diseases (principal)
CPT/HCPCS: 87635

== ENCOUNTER → 2021-06-18 14:18 | Outpatient (CLI) | payer OTHER, MEDICAID, SELFPAY ==
[2021-06-19 07:24] LABS: Cholesterol 207 mg/dL (140-199); HDL Cholesterol 66 mg/dL (40-60); LDL Cholesterol Calculated 122 mg/dL (<100); Triglycerides 94 mg/dL (35-150)
[2021-06-19 20:12] LABS: Thyroglobulin Antibodies < 1.0 IU/mL (0.0-0.9)
== END ==
PROVIDERS: PCP Family Medicine; Referring Provider Family Medicine; Visit Provider Family Medicine
DX: E78.5 Hyperlipidemia, unspecified (principal)
CPT/HCPCS: 36415; 80061; 84432; 86800

== ENCOUNTER → 2021-06-23 09:23 | Outpatient (CLI) | payer OTHER, MEDICAID, SELFPAY | PROVIDERS: PCP Family Medicine; Visit Provider Physician Assistant | DX: L08.9 Local infection of the skin and subcutaneous tissue, unspecified (principal) | CPT/HCPCS: 87070; 87075; 87077; 87147; 87186; 87205 ==

== ENCOUNTER → 2021-07-22 10:09 | Outpatient (CLI) | payer OTHER, MEDICAID, SELFPAY ==
[2021-07-22 11:47] LABS: Alanine Aminotransferase 26 IU/L (<35); Albumin 4.4 g/dL (3.5-5.0); Albumin Globulin Ratio 1.8 (1.0-2.8); Alkaline Phosphatase 61 U/L (38-126); Aspartate Aminotransferase 29 IU/L (14-36); BUN Creatinine Ratio 28.1 (6-22); Bilirubin Total 0.4 mg/dL (0.2-1.3); Blood Urea Nitrogen 16 mg/dL (7-17); Calcium 9.2 mg/dL (8.4-10.2); Carbon Dioxide 32 mmol/L (22-32); Chloride 102 mmol/L (98-107); Estimated Glomerular Filt Rate > 60.0 mL/min (>60); Gamma Glutamyl Transpeptidase 42 U/L (12-43); Globulin 2.4 g/dL (1.7-4.1); Glucose 89 mg/dL (80-110); HEMOLYSIS < 15 (0-50); Sodium 137 mmol/L (137-145); Total Protein 6.8 g/dL (6.3-8.2)
[2021-07-22 12:16] LABS: Thyroid Stimulating Hormone 2.49 uIU/mL (0.47-4.68)
== END ==
PROVIDERS: PCP Family Medicine; Referring Provider Family Medicine; Visit Provider Family Medicine
DX: E05.90 Thyrotoxicosis, unspecified without thyrotoxic crisis or storm (principal); R74.8 Abnormal levels of other serum enzymes
CPT/HCPCS: 36415; 80053; 82977; 84443

== ENCOUNTER → 2021-12-02 11:06 | Outpatient (CLI) | payer OTHER, MEDICAID, SELFPAY ==
[2021-12-02 11:25] LABS: Add Manual Diff / Slide Review NO; Basophils Absolute Auto 0 /uL (0-100); Basophils Percent Auto 1.2 % (0-2); Eosinophils Absolute Auto 200 /uL (0-450); Eosinophils Percent Auto 4.1 % (2-4); Hematocrit 37.7 % (36-46); Hemoglobin 12.8 g/dL (12.0-16.0); Lymphocytes Absolute Auto 1300 /uL (1100-4500); Lymphocytes Percent Auto 31.7 % (25-40); Mean Corpuscular HGB Conc 33.9 % (30-36); Mean Corpuscular Hemoglobin 30.8 PG (26-34); Mean Corpuscular Volume 91.1 fL (80-100); Monocytes Absolute Auto 400 /uL (0-900); Monocytes Percent Auto 8.7 % (3-14); Neutrophils Absolute Auto 2300 /uL (1500-7000); Neutrophils Percent Auto 54.3 % (50-75); Platelet Count 116 X10^3/uL (150-400); Red Blood Cell Count 4.13 X10^6/uL (4.0-5.2); Red Cell Distribution Width 13.1 % (11.6-14.8); White Blood Cell Count 4.2 X10^3/uL (4.5-11.0)
[2021-12-02 11:37] LABS: Alanine Aminotransferase 34 IU/L (<35); Albumin 4.6 g/dL (3.5-5.0); Albumin Globulin Ratio 1.7 (1.0-2.8); Alkaline Phosphatase 64 U/L (38-126); Aspartate Aminotransferase 34 IU/L (14-36); BUN Creatinine Ratio 17.9 (6-22); Bilirubin Total 0.5 mg/dL (0.2-1.3); Blood Urea Nitrogen 12 mg/dL (7-17); Calcium 9.5 mg/dL (8.4-10.2); Carbon Dioxide 31 mmol/L (22-32); Chloride 102 mmol/L (98-107); Estimated Glomerular Filt Rate > 60.0 mL/min (>60); Gamma Glutamyl Transpeptidase 54 U/L (12-43); Globulin 2.7 g/dL (1.7-4.1); Glucose 120 mg/dL (80-110); HEMOLYSIS < 15 (0-50); Sodium 138 mmol/L (137-145); Total Protein 7.3 g/dL (6.3-8.2)
[2021-12-02 12:07] LABS: Thyroid Stimulating Hormone 1.13 uIU/mL (0.47-4.68)
[2021-12-03 13:10] LABS: Hemoglobin A1C% w Est Avg Glu 5.7 % (4.0-6.0)
== END ==
PROVIDERS: PCP Physician Assistant; Referring Provider Physician Assistant; Visit Provider Physician Assistant
DX: R11.0 Nausea (principal); E03.9 Hypothyroidism, unspecified
CPT/HCPCS: 36415; 80053; 82977; 83036; 84443; 85025

== ENCOUNTER → 2022-05-18 08:55 | Outpatient (CLI) | payer OTHER, SELFPAY ==
--- NOTE | 2022-05-18 | DI.MG.S_ITS ---
BILATERAL DIGITAL DIAGNOSTIC MAMMOGRAM 3D/2D WITH AUGMENTATION: 05/18/2022 CLINICAL: Bilateral breast pain. Comparison is made to exam dated: 12/07/2017 mammogram - [facility]. The tissue of both breasts is heterogeneously dense. This may lower the sensitivity of mammography. Bilateral breast implants are stable. No significant masses, calcifications, or other findings are seen in either breast. There has been no significant interval change. IMPRESSION: NEGATIVE There is no mammographic evidence of malignancy. Diffuse pain bilaterally. No mass or suspicious calcifications. Intact implants. A 1 year screening mammogram is recommended. Based on the Tyrer Cuzick model (a risk assessment model) the patient's lifetime risk is 5.8% and her 10 year risk is 2.3%. According to the ACR, ACS, and NCCN guidelines, an annual breast MRI exam along with mammogram is recommended if the patient's lifetime risk is 20% or greater. This exam was interpreted at Station ID: [id number]. NOTE: For mammograms, a report in lay terms will be sent to the patient. Approximately 15% of breast malignancies will not be visualized mammographically. In the management of a palpable breast mass, a negative mammogram must not discourage biopsy of a clinically suspicious lesion. Electronically Signed By: Maxim Sorenson M.D. slc/:05/18/2022 09:48:44 letter sent: Normal Exam ACR BI-RADS Category 1: Negative [id number]
== END ==
PROVIDERS: PCP Physician Assistant; Referring Provider Physician Assistant; Visit Provider Physician Assistant
DX: N64.4 Mastodynia (principal)
CPT/HCPCS: 77066; G0279

== ENCOUNTER 2022-07-31 12:25 | Emergency (ER) | payer OTHER, SELFPAY ==
[2022-07-31] VITALS (11 sets, daily range): BP systolic 125–180; BP diastolic 71–95; PULSE 56–87; RESP 14–22; TEMP 36.9; O2SAT 97–100; BMI 23.0
--- NOTE | 2022-07-31 12:33 | DI.RAD.S_ITS ---
PROCEDURE: XR CHEST 1V INDICATIONS: chest pain TECHNIQUE: One view of the chest was acquired. COMPARISON: [facility], CR, XR CHEST 1V, 08/31/2020, 23:06. [facility], CR, XR CHEST 1V, 09/24/2020, 15:17. FINDINGS: Surgical changes and devices: None. Lungs and pleura: Lungs are clear. No pleural effusions or pneumothorax. Mediastinum: Mediastinal contours appear normal. Heart size is normal. Atherosclerotic calcification of the aortic arch is noted. Bones and chest wall: No suspicious bony lesions. Overlying soft tissues appear unremarkable. IMPRESSION: Portable chest study within normal limits for age. Dictated by: Radu Cartwright M.D. on 07/31/2022 at 11:58 Approved by: Radu Cartwright M.D. on 07/31/2022 at 12:00
[2022-07-31 13:12] LABS: Add Manual Diff / Slide Review NO; Basophils Absolute Auto 100 /uL (0-100); Basophils Percent Auto 1.1 % (0-2); Eosinophils Absolute Auto 100 /uL (0-450); Eosinophils Percent Auto 2.6 % (2-4); Hematocrit 40.6 % (36-46); Hemoglobin 13.9 g/dL (12.0-16.0); Lymphocytes Absolute Auto 1900 /uL (1100-4500); Lymphocytes Percent Auto 35.6 % (25-40); Mean Corpuscular HGB Conc 34.4 % (30-36); Mean Corpuscular Hemoglobin 31.1 PG (26-34); Mean Corpuscular Volume 90.6 fL (80-100); Monocytes Absolute Auto 500 /uL (0-900); Monocytes Percent Auto 9.3 % (3-14); Neutrophils Absolute Auto 2800 /uL (1500-7000); Neutrophils Percent Auto 51.4 % (50-75); Platelet Count 136 X10^3/uL (150-400); Red Blood Cell Count 4.48 X10^6/uL (4.0-5.2); Red Cell Distribution Width 13.1 % (11.6-14.8); White Blood Cell Count 5.4 X10^3/uL (4.5-11.0)
--- NOTE | 2022-07-31 13:21 | ED.GENADULT ---
HPI - General Adult General Chief complaint: Hypertension Stated complaint: High blood pressure, SOB, shaking Time Seen by Provider: 07/31/22 12:59 Source: patient Mode of arrival: Ambulatory History of Present Illness HPI narrative: Patient is a 62-year-old female who presents today with complaint elevated blood pressure. States her blood pressure 208/90 admission she is been checking blood and that it has been administered over the last 2 weeks she is had periodic increases in her blood pressure states she only takes his son pressure in the last 4 days of increased dose from 12.5 per day to 12.5 in the morning and 25 mg at night. States this is the middle with a blood pressure the blood pressure still elevated this related symptoms the blood pressure is periodic shortness of breath and tingling in her lower extremities. Having history of SVT that resolved after an ablation was done in 2013 and also admits to a history of anxiety. Admits to periodic shortness of breath associated with the increases in blood pressure but denies chest pain fever chills nausea vomiting GI or concerns. States her blood pressure elevation is made worse by going to work. Better by lying still meditating and taking deep breaths. Related Data Home Medications Medication Instructions Recorded Confirmed [Vitamin D3] ##0 02/01/17 07/21/21 losartan 25 mg tablet See Rx Instructions .Route .COMPLEX 07/21/21 07/21/21 Previous Rx's Medication Instructions Recorded lorazepam 0.5 mg tablet See Rx Instructions .Route 06/03/20 .COMPLEX #30 tabs estradiol 1 mg tablet 1 mg PO QDAY #90 tabs 09/29/20 citalopram 40 mg tablet See Rx Instructions .Route 02/08/22 .COMPLEX #30 tabs levothyroxine 50 mcg tablet See Rx Instructions .Route 06/24/22 .COMPLEX #90 tabs hydrochlorothiazide 25 mg tablet 25 mg PO DAILY #7 tabs 07/31/22 hydrochlorothiazide 25 mg tablet 25 mg PO DAILY #7 tabs 07/31/22 Allergies Allergy/AdvReac Type Severity Reaction Status Date / Time lisinopril Allergy Mild Cough Verified 06/23/21 08:53 erythromycin base Allergy Unknown Verified 09/24/20 14:32 [ERYTHROMYCIN BASE] Sulfa (Sulfonamide Allergy Unknown Verified 09/24/20 14:32 Antibiotics) [SULFA (SULFONAMIDE ANTIBIOTICS)] Review of Systems Review of Systems Narrative: R.O.S.: General: No fever, chills or fatigue. Cardiovascular: Periodic shortness of breath and periodic elevations of blood pressure Respiratory: No S.O.B. HEENT: No congestion, ear pain, rhinorrhea, sore throat or tinnitus Gastrointestinal: No nausea or vomiting : No urinary concerns Skin: No rash or associated abnormalities Musculoskeletal: No pain in muscles or joints, no limitation of range of motion, no paresthesia or numbness. ?? Neurological: Awake, alert and in not apparent distress. No Headaches, changes in vision or other related neurological concerns. Patient History Medical History Anxiety and depression (02/01/17) Chicken pox Constipation, chronic (2003) Depression Eczema Fibroids Hemorrhoids (1980) Herpes (1979) History of bilateral breast implants (02/21/17) History of cardiac radiofrequency ablation (RFA) (02/01/17) History of supraventricular tachycardia (02/01/17) Measles Mononucleosis (1978) Mumps Prediabetes Psoriasis (2011) PTSD (post-traumatic stress disorder) (2009) SVT (supraventricular tachycardia) (2014) Surgical History Anesthesia History of bilateral salpingo-oophorectomy (BSO) (2004) History of breast augmentation (2005) History of breast augmentation (2013) History of cardiac radiofrequency ablation (RFA) (2014) Status post hysterectomy (2003) Family History Father Esophageal varices Grandmother ALS (amyotrophic lateral sclerosis) Grandfather Emphysema/COPD Grandmother Emphysema/COPD Brother No problems noted. Grandfather No problems noted. Mother Hearing loss Vision loss Sister No problems noted. Sister No problems noted. Social History Smoking Status: Never smoker alcohol intake: current substance use type: does not use Smoking Status: Never smoker Substance Use Type: does not use Exam Narrative Exam Narrative: Physical Exam: ? General: normal appearance, well developed, well nourished, alert, and awake. Not in acute distress. ? Head: Normocephalic, no lesions. Chest: Lungs CTAB, no rales, rhonchi or wheezes. ?? Heart: RRR, no murmurs, rubs or gallops. Eyes: PERRLA, EOM's full, conjunctivae clear. ? Neuro: Physiological, no localizing findings, CN3-12 intact. ?? Extremities: Warm, well perfused, FROM, no deformities, no edema. ?? Skin: Normal, no rashes, no lesions noted. ?? PSYCHIATRIC: The mood is good, no blunted affect. Speech is clear. Thought process is linear, thought content is appropriate. The voice is without significant inflection. Gastrointestinal: Soft; NT; ND; Pos BS with Neg. rebound tenderness. No scars or major deformities noted on Visual Inspection. Initial Vital Signs Initial Vital Signs: Vital Signs Temperature 98.4 F 07/31/22 12:33 Pulse Rate 87 07/31/22 12:33 Respiratory Rate 18 07/31/22 12:33 Blood Pressure 180/95 H 07/31/22 12:33 Pulse Oximetry 100 07/31/22 12:33 Oxygen Delivery Method 07/31/22 12:33 Course Orders Ordered: ED Orders 07/31/22 12:33 XR chest 1V Stat 07/31/22 12:40 EKG-12 Lead Stat 07/31/22 12:47 Complete Blood Count AUTO DIFF Stat Comprehensive Metabolic Panel Stat Lipase Stat Magnesium Stat Troponin & CK Cardiac Panel Stat Discontinued Medications Hydrochlorothiazide (Hydrochlorothiazide 25 Mg Tablet) 25 mg PO NOW ONE Stop: 07/31/22 14:04 Last Admin: 07/31/22 14:16 Dose: 25 mg Documented By: YAA Vital Signs Vital signs: Vital Signs - 8 hr 07/31/22 13:30 07/31/22 13:45 07/31/22 13:45 Pulse Rate 60 57 L Respiratory Rate 16 17 Blood Pressure 167/89 H 163/82 H Pulse Oximetry 99 100 Oxygen Delivery Method Room Air 07/31/22 14:00 07/31/22 14:00 07/31/22 14:15 Pulse Rate 61 61 Respiratory Rate 18 20 Blood Pressure 161/79 H Pulse Oximetry 100 100 Oxygen Delivery Method Room Air 07/31/22 14:15 07/31/22 14:30 07/31/22 14:30 Pulse Rate 56 L Respiratory Rate 14 Blood Pressure 162/86 H 142/71 H Pulse Oximetry 98 Oxygen Delivery Method 07/31/22 14:45 07/31/22 14:45 07/31/22 15:00 Pulse Rate 57 L Respiratory Rate Blood Pressure 135/72 131/78 Pulse Oximetry 100 Oxygen Delivery Method 07/31/22 15:00 07/31/22 15:15 07/31/22 15:15 Pulse Rate 59 L 57 L Respiratory Rate 22 18 Blood Pressure 128/78 Pulse Oximetry 97 99 Oxygen Delivery Method Room Air 07/31/22 15:30 07/31/22 15:30 07/31/22 15:45 Pulse Rate 63 Respiratory Rate 17 Blood Pressure 125/74 130/75 Pulse Oximetry 99 Oxygen Delivery Method 07/31/22 15:45 Pulse Rate 69 Respiratory Rate 16 Blood Pressure Pulse Oximetry 98 Oxygen Delivery Method Room Air Medical Decision Making Lab Data Result diagrams: 07/31/22 12:47 07/31/22 12:47 Labs: Lab Results 07/31/22 07/31/22 Range/Units 12:47 12:47 WBC 5.4 (4.5-11.0) X10^3/uL RBC 4.48 (4.0-5.2) X10^6/uL Hgb 13.9 (12.0-16.0) g/dL Hct 40.6 (36-46) % MCV 90.6 (80-100) fL MCH 31.1 (26-34) PG MCHC 34.4 (30-36) % RDW 13.1 (11.6-14.8) % Plt Count 136 L (150-400) X10^3/uL Neut % (Auto) 51.4 (50-75) % Lymph % (Auto) 35.6 (25-40) % [place] % (Auto) 9.3 (3-14) % Eos % (Auto) 2.6 (2-4) % Baso % (Auto) 1.1 (0-2) % Neut # (Auto) 2800 (7533-6415) /uL Lymph # (Auto) 1900 (8369-7774) /uL [place] # (Auto) 500 (0-900) /uL Eos # (Auto) 100 (0-450) /uL Baso # (Auto) 100 (0-100) /uL Sodium 139 (137-145) mmol/L Potassium 3.5 (3.4-5.1) mmol/L Chloride 98 (98-107) mmol/L Carbon Dioxide 29 (22-32) mmol/L BUN 13 (7-17) mg/dL Creatinine 0.64 (0.52-1.04) mg/dL Estimated GFR > 60 (>60) mL/min BUN/Creatinine Ratio 20.3 (6-22) Glucose 113 H (80-110) mg/dL Calcium 9.9 (8.4-10.2) mg/dL Magnesium 2.0 (1.6-2.3) mg/dL Total Bilirubin 0.6 (0.2-1.3) mg/dL AST 37 H (14-36) IU/L ALT 25 (<35) IU/L Alkaline Phosphatase 61 (38-126) U/L Total Creatine Kinase 87 (30-135) U/L CK-MB (CK-2) TNP CK-MB (CK-2) Rel Index TNP Troponin I < 0.012 (0.01-0.034) ng/mL Total Protein 8.3 H (6.3-8.2) g/dL Albumin 5.0 (3.5-5.0) g/dL Globulin 3.3 (1.7-4.1) g/dL Albumin/Globulin Ratio 1.5 (1.0-2.8) Lipase 88 (23-300) U/L Imaging Data Chest x-ray: Radiologist's Impression: [address] [address] XRay Report Signed Patient: Inna Levin MR#: [id number] : 1960 Acct:[id number] Age/Sex: 62 / F Date of Service: 07/31/22 Loc: ED Accession Number: [id number] ?? Procedure: XR chest 1V Ordering Provider: Michel Valentin MD PROCEDURE:? XR CHEST 1V ? INDICATIONS:? chest pain ? TECHNIQUE:? One view of the chest was acquired.? ? COMPARISON:? [facility], CR, XR CHEST 1V, 08/31/2020, 23:06.? [facility], CR, XR CHEST 1V, 09/24/2020, 15:17. ? FINDINGS:? ? Surgical changes and devices:? None.? ? Lungs and pleura:? Lungs are clear.? No pleural effusions or pneumothorax.? ? Mediastinum:? Mediastinal contours appear normal.? Heart size is normal.? Atherosclerotic calcification of the aortic arch is noted.? ? Bones and chest wall:? No suspicious bony lesions.? Overlying soft tissues appear unremarkable.? IMPRESSION:? Portable chest study within normal limits for age. ? ? Dictated by: Radu Cartwright M.D. on 07/31/2022 at 11:58 ? ? Approved by: Radu Cartwright M.D. on 07/31/2022 at 12:00 ? ECG Data Interpretation: EKG has normal sinus rhythm with no obvious left bundle-branch block ST segment elevation or Q-wave morphology. EKG also reviewed by Dr Valentin. [facility] Narrative Medical decision making narrative: Patient is a 62-year-old female who presents to the emergency room today with complaint of increased blood pressure and associated shortness of breath. Denies chest pain or any urgent emergent concerns states that she only takes Losartan for blood pressure now and has increased her dosage to 3 times and does over the last 4 days. Hydrochlorothiazide was ordered to help lower blood pressure now. Plan to re-evaluate. About 1 hour after administration of HCTZ. Plan to discharge with limited supply of hydrochlorothiazide and patient to follow up with her primary care provider. Discharge Plan Departure Patient Disposition: Home Clinical Impression: Hypertension Instructions: DI for High Blood Pressure Activity Restrictions/Additional Instructions: *You have been diagnosed with exacerbation of your high blood pressure. I prescribed you a dose of hydrochlorothiazide to help to decrease your blood pressure. I have ordered hydrochlorothiazide doses for 5 days and suggested follow up with her primary care provider in regards to chronic treatment of your high blood pressure. Please return to the emergency room showing any emergent concerns arise and report to her primary care provider she would a nonemergent concerns arise [ ] *What to do: *Please continue to take your regular medications as directed. [x] New medication prescriptions sent to your pharmacy: [ ] [ ] New medication written as a paper prescription [ ] No new medications given *Please follow up with your primary care provider in 2-3 days, call for an appointment. Let them know you were seen in the Emergency Department and that we ask that you be seen in follow up. We will electronically transmit a record of today's note if your PCP is in our system *If you do not have a primary care provider please contact the [facility] Resource line at [phone]. They will ask some questions about your medical history and help get you set up with a doctor in the community. *Return to Emergency Department if you should have any new, worsening or concerning symptoms, such as [fever greater than 101 F, shaking chills, worsening pain, persistent vomiting or other bothersome symptoms] Prescriptions: New hydrochlorothiazide 25 mg tablet 25 mg PO DAILY Qty: 7 0RF hydrochlorothiazide 25 mg tablet 25 mg PO DAILY Qty: 7 0RF No Action losartan 25 mg tablet See Rx Instructions .ROUTE .COMPLEX Dose Instruction: take one tablet by mouth daily Rx Instructions: take one half tablet by mouth daily [Vitamin D3] Qty: 0 lorazepam 0.5 mg tablet See Rx Instructions .ROUTE .COMPLEX Qty: 30 0RF Dose Instruction: TAKE 1 TABLET BY MOUTH EVERY DAY NEEDED FOR ANXIETY Rx Instructions: TAKE 1 TABLET BY MOUTH EVERY DAY NEEDED FOR ANXIETY estradiol 1 mg tablet 1 mg PO QDAY Qty: 90 5RF citalopram 40 mg tablet See Rx Instructions .ROUTE .COMPLEX Qty: 30 4RF Dose Instruction: take 1 tablet by mouth daily Rx Instructions: take 1 tablet by mouth daily levothyroxine 50 mcg tablet See Rx Instructions .ROUTE .COMPLEX Qty: 90 3RF Dose Instruction: TAKE ONE TABLET BY MOUTH ONE TIME DAILY Rx Instructions: TAKE ONE TABLET BY MOUTH ONE TIME DAILY Referrals: Katyh Diaz PA-C [Primary Care Provider] - Visit Report Forms: Patient Portal/API
[2022-07-31 13:26] LABS: Alanine Aminotransferase 25 IU/L (<35); Albumin Globulin Ratio 1.5 (1.0-2.8); Alkaline Phosphatase 61 U/L (38-126); Aspartate Aminotransferase 37 IU/L (14-36); BUN Creatinine Ratio 20.3 (6-22); Bilirubin Total 0.6 mg/dL (0.2-1.3); Blood Urea Nitrogen 13 mg/dL (7-17); Calcium 9.9 mg/dL (8.4-10.2); Carbon Dioxide 29 mmol/L (22-32); Chloride 98 mmol/L (98-107); Creatine Kinase 87 U/L (30-135); Estimated Glomerular Filt Rate > 60 mL/min (>60); Globulin 3.3 g/dL (1.7-4.1); Glucose 113 mg/dL (80-110); HEMOLYSIS 16 (0-50); Lipase 88 U/L (23-300); Potassium 3.5 mmol/L (3.4-5.1); Sodium 139 mmol/L (137-145); Total Protein 8.3 g/dL (6.3-8.2)
[2022-07-31 13:38] LABS: Troponin I < 0.012 ng/mL (0.01-0.034)
[2022-07-31] MEDS: hydroCHLOROthiazide 25 MG TABLET PO (14:16)
== END 2022-07-31 15:58 | disposition home or self-care (01) ==
PROVIDERS: Emergency Medicine; Emergency Provider Physician Assistant; PCP Physician Assistant
DX: I10 Essential (primary) hypertension (principal); R07.9 Chest pain, unspecified
CPT/HCPCS: 36415; 71045; 80053; 82550; 83690; 83735; 84484; 85025; 93005; 99284

== ENCOUNTER → 2022-08-03 08:43 | Outpatient (CLI) | payer OTHER, SELFPAY ==
[2022-08-03 09:16] LABS: Hemoglobin A1C% w Est Avg Glu 5.6 % (4.0-6.0)
[2022-08-03 09:40] LABS: Alanine Aminotransferase 25 IU/L (<35); Albumin 4.6 g/dL (3.5-5.0); Albumin Globulin Ratio 1.6 (1.0-2.8); Alkaline Phosphatase 52 U/L (38-126); Aspartate Aminotransferase 31 IU/L (14-36); BUN Creatinine Ratio 23.9 (6-22); Bilirubin Total 0.7 mg/dL (0.2-1.3); Blood Urea Nitrogen 16 mg/dL (7-17); Calcium 9.7 mg/dL (8.4-10.2); Carbon Dioxide 33 mmol/L (22-32); Chloride 96 mmol/L (98-107); Estimated Glomerular Filt Rate > 60 mL/min (>60); Globulin 2.8 g/dL (1.7-4.1); Glucose 110 mg/dL (80-110); HEMOLYSIS < 15 (0-50); Potassium 3.6 mmol/L (3.4-5.1); Sodium 137 mmol/L (137-145); Total Protein 7.4 g/dL (6.3-8.2)
[2022-08-03 09:59] LABS: TSH w/ Reflex to FT4 1.67 uIU/mL (0.47-4.68)
[2022-08-03 10:38] LABS: Creatinine Urine Random 23.1 mg/dL
[2022-08-03 10:44] LABS: Microalbumin Urine Random < 0.6 mg/dL (0-1.6)
== END ==
PROVIDERS: PCP Family Medicine; Referring Provider Family Medicine; Visit Provider Family Medicine
DX: E03.9 Hypothyroidism, unspecified (principal); I10 Essential (primary) hypertension; R73.9 Hyperglycemia, unspecified
CPT/HCPCS: 36415; 80053; 82043; 82570; 83036; 84443

== ENCOUNTER → 2022-10-05 12:41 | Outpatient (CLI) | payer OTHER, SELFPAY ==
[2022-10-05 13:02] LABS: Add Manual Diff / Slide Review NO; Basophils Absolute Auto 100 /uL (0-100); Basophils Percent Auto 2.3 % (0-2); Eosinophils Absolute Auto 200 /uL (0-450); Eosinophils Percent Auto 3.8 % (2-4); Hematocrit 35.6 % (36-46); Hemoglobin 12.4 g/dL (12.0-16.0); Lymphocytes Absolute Auto 1400 /uL (1100-4500); Lymphocytes Percent Auto 32.5 % (25-40); Mean Corpuscular HGB Conc 34.7 % (30-36); Mean Corpuscular Hemoglobin 31.5 PG (26-34); Mean Corpuscular Volume 90.7 fL (80-100); Monocytes Absolute Auto 400 /uL (0-900); Monocytes Percent Auto 8.9 % (3-14); Neutrophils Absolute Auto 2300 /uL (1500-7000); Neutrophils Percent Auto 52.5 % (50-75); Platelet Count 118 X10^3/uL (150-400); Red Blood Cell Count 3.92 X10^6/uL (4.0-5.2); Red Cell Distribution Width 13.4 % (11.6-14.8); White Blood Cell Count 4.3 X10^3/uL (4.5-11.0)
[2022-10-05 13:34] LABS: Alanine Aminotransferase 21 IU/L (<35); Albumin 4.3 g/dL (3.5-5.0); Albumin Globulin Ratio 1.7 (1.0-2.8); Alkaline Phosphatase 51 U/L (38-126); Aspartate Aminotransferase 24 IU/L (14-36); BUN Creatinine Ratio 19.7 (6-22); Bilirubin Total 0.4 mg/dL (0.2-1.3); Blood Urea Nitrogen 13 mg/dL (7-17); Calcium 8.6 mg/dL (8.4-10.2); Carbon Dioxide 28 mmol/L (22-32); Chloride 100 mmol/L (98-107); Estimated Glomerular Filt Rate > 60 mL/min (>60); Globulin 2.5 g/dL (1.7-4.1); Glucose 109 mg/dL (80-110); HEMOLYSIS < 15 (0-50); Potassium 3.9 mmol/L (3.4-5.1); Sodium 138 mmol/L (137-145); Total Protein 6.8 g/dL (6.3-8.2)
[2022-10-05 13:52] LABS: Free T4, Direct Thyroxine 1.21 ng/dL (0.78-2.19); T4 Total Thyroxine 7.34 ug/dL (5.5-11.0); T7 (Free Thyroxine Index) 2.33 (1.65-3.89); Triiodothryronine T3 Uptake 31.7 % (23.5-40.5)
[2022-10-06 07:09] LABS: Triiodothyronine T3 Total 87 ng/dL (71-180)
== END ==
PROVIDERS: PCP Family Medicine; Referring Provider Family Medicine; Visit Provider Family Medicine
DX: E03.9 Hypothyroidism, unspecified (principal); I10 Essential (primary) hypertension; R00.2 Palpitations
CPT/HCPCS: 36415; 80053; 83735; 84436; 84439; 84479; 84480; 85025

== ENCOUNTER 2023-01-13 14:45 | Emergency (ER) | payer OTHER, SELFPAY ==
[2023-01-13] VITALS (13 sets, daily range): BP systolic 126–145; BP diastolic 61–87; PULSE 47–65; RESP 12–21; TEMP 36.6; O2SAT 96–99; BMI 23.0
--- NOTE | 2023-01-13 15:11 | DI.RAD.S_ITS ---
PROCEDURE: XR CHEST 1V INDICATIONS: chest pain TECHNIQUE: One view of the chest was acquired. COMPARISON: [facility], CR, XR CHEST 1V, 07/31/2022, 12:45. FINDINGS: Surgical changes and devices: None. Lungs and pleura: Lungs are clear. No pleural effusions or pneumothorax. Mediastinum: Mediastinal contours appear normal. Heart size is normal. Bones and chest wall: No suspicious bony lesions. Overlying soft tissues appear unremarkable. IMPRESSION: No acute cardiopulmonary pathology. Dictated by: Gagan Houston M.D. on 01/13/2023 at 15:10 Approved by: Gagan Houston M.D. on 01/13/2023 at 15:12
[2023-01-13 15:27] LABS: Add Manual Diff / Slide Review NO; Basophils Absolute Auto 0 /uL (0-100); Basophils Percent Auto 0.3 % (0-2); Eosinophils Absolute Auto 200 /uL (0-450); Eosinophils Percent Auto 2.7 % (2-4); Hematocrit 36.3 % (36-46); Hemoglobin 12.4 g/dL (12.0-16.0); Lymphocytes Absolute Auto 1500 /uL (1100-4500); Lymphocytes Percent Auto 26.1 % (25-40); Mean Corpuscular HGB Conc 34.1 % (30-36); Mean Corpuscular Hemoglobin 31.5 PG (26-34); Mean Corpuscular Volume 92.3 fL (80-100); Monocytes Absolute Auto 500 /uL (0-900); Monocytes Percent Auto 8.8 % (3-14); Neutrophils Absolute Auto 3700 /uL (1500-7000); Neutrophils Percent Auto 62.1 % (50-75); Platelet Count 129 X10^3/uL (150-400); Red Blood Cell Count 3.94 X10^6/uL (4.0-5.2); Red Cell Distribution Width 13.2 % (11.6-14.8); White Blood Cell Count 5.9 X10^3/uL (4.5-11.0)
[2023-01-13 15:33] LABS: INR 1.1 (0.9-1.3); Prothrombin Time 12.1 SECONDS (10.1-12.7)
[2023-01-13 15:36] LABS: PTT Partial Thromboplastin Tim 30 SECONDS (26-36)
[2023-01-13 15:37] LABS: Alanine Aminotransferase 22 IU/L (<35); Albumin 4.3 g/dL (3.5-5.0); Albumin Globulin Ratio 1.5 (1.0-2.8); Alkaline Phosphatase 43 U/L (38-126); Aspartate Aminotransferase 28 IU/L (14-36); Bilirubin Total 0.6 mg/dL (0.2-1.3); Blood Urea Nitrogen 18 mg/dL (7-17); Carbon Dioxide 30 mmol/L (22-32); Chloride 101 mmol/L (98-107); Creatine Kinase 107 U/L (30-135); Estimated Glomerular Filt Rate > 60 mL/min (>60); Globulin 2.9 g/dL (1.7-4.1); Glucose 104 mg/dL (80-110); HEMOLYSIS < 15 (0-50); Lipase 87 U/L (23-300); Magnesium 2.1 mg/dL (1.6-2.3); Potassium 3.8 mmol/L (3.4-5.1); Sodium 137 mmol/L (137-145); Total Protein 7.2 g/dL (6.3-8.2)
[2023-01-13 15:49] LABS: Troponin I < 0.012 ng/mL (0.01-0.034)
[2023-01-13 15:52] LABS: CKMB % Relative Index 0.9 % (1.5-5.0)
[2023-01-13] MEDS: ASPIRIN 81 MG CHEW TAB 324 MG PO (16:43)
[2023-01-13] MEDS: SODIUM CHLORIDE 0.9% 500 ML 1000 ML IV (16:44)
--- NOTE | 2023-01-17 21:42 | ED_ITS ---
HPI - Chest Pain General Chief Complaint: Chest Pain Stated Complaint: heart palpitations, shortness of breath Time Seen by Provider: 01/13/23 15:32 Source: patient Mode of arrival: Ambulatory Limitations: no limitations History of Present Illness HPI narrative: 62-year-old female presenting palpitations that have been worsening over the last several days. Patient has a history of similar with prior cardiac ablation in distant past. Patient reports feeling her heart racing and skipping beats that has been persistent over the last few days and worsening today. Associated mild chest tightness and shortness of breath. No fevers. No cough. No lightheadedness or near-syncope. Related Data Home Medications Medication Instructions Recorded Confirmed [Vitamin D3] ##0 02/01/17 07/21/21 losartan 25 mg tablet See Rx Instructions .Route .COMPLEX 07/21/21 07/21/21 Previous Rx's Medication Instructions Recorded lorazepam 0.5 mg tablet See Rx Instructions .Route 06/03/20 .COMPLEX #30 tabs estradiol 1 mg tablet 1 mg PO QDAY #90 tabs 09/29/20 citalopram 40 mg tablet See Rx Instructions .Route 02/08/22 .COMPLEX #30 tabs levothyroxine 50 mcg tablet See Rx Instructions .Route 06/24/22 .COMPLEX #90 tabs hydrochlorothiazide 25 mg tablet 25 mg PO DAILY #7 tabs 07/31/22 hydrochlorothiazide 25 mg tablet 25 mg PO DAILY #7 tabs 07/31/22 Allergies Allergy/AdvReac Type Severity Reaction Status Date / Time lisinopril Allergy Mild Cough Verified 06/23/21 08:53 erythromycin base Allergy Unknown Verified 09/24/20 14:32 [ERYTHROMYCIN BASE] Sulfa (Sulfonamide Allergy Unknown Verified 09/24/20 14:32 Antibiotics) [SULFA (SULFONAMIDE ANTIBIOTICS)] Patient History Medical History Anxiety and depression (02/01/17) Chicken pox Constipation, chronic (2003) Depression Eczema Fibroids Hemorrhoids (1980) Herpes (1979) History of bilateral breast implants (02/21/17) History of cardiac radiofrequency ablation (RFA) (02/01/17) History of supraventricular tachycardia (02/01/17) Measles Mononucleosis (1978) Mumps Prediabetes Psoriasis (2011) PTSD (post-traumatic stress disorder) (2010) SVT (supraventricular tachycardia) (2014) Surgical History Anesthesia History of bilateral salpingo-oophorectomy (BSO) (2004) History of breast augmentation (2005) History of breast augmentation (2013) History of cardiac radiofrequency ablation (RFA) (2014) Status post hysterectomy (2003) Family History Father Esophageal varices Grandmother ALS (amyotrophic lateral sclerosis) Grandfather Emphysema/COPD Grandmother Emphysema/COPD Brother No problems noted. Grandfather No problems noted. Mother Hearing loss Vision loss Sister No problems noted. Sister No problems noted. Social History Smoking Status: Never smoker alcohol intake: current substance use type: does not use Smoking Status: Never smoker Substance Use Type: does not use Exam Narrative Exam Narrative: Vitals reviewed. Nursing note reviewed Constitutional: interactive HENT: Moist mucous membranes EYES: No scleral icterus NECK: no masses CV: Well perfused peripherally, no cyanosis present PULM: Unlabored respirations, symmetric chest rise ABD: Non-distended MS: No gross deformities, no asymmetric edema noted SKIN: Warm and dry. PSYCH: Appropriate affect NEURO: Follows simple commands, moves extremities, interactive with exam Initial Vital Signs Initial Vital Signs: Vital Signs Temperature 97.8 F 01/13/23 15:08 Pulse Rate 65 01/13/23 15:08 Respiratory Rate 18 01/13/23 15:08 Blood Pressure 145/68 H 01/13/23 15:08 Pulse Oximetry 97 01/13/23 15:08 Oxygen Delivery Method Room Air 01/13/23 15:08 Course Orders Ordered: Discontinued Medications Aspirin (Aspirin 81 Mg Chew Tab) 324 mg PO NOW ONE Stop: 01/13/23 15:12 Last Admin: 01/13/23 16:43 Dose: 324 mg Documented By: EDUARDO Sodium Chloride (Normal Saline 0.9%) 500 mls @ 1,000 mls/hr IV BOLUS ONE Stop: 01/13/23 16:51 Last Infusion: 01/13/23 17:51 Dose: 0 mls/hr Documented By: Admin: 01/13/23 16:44 Dose: 1,000 mls/hr Documented By: EDUARDO MDM - Chest Pain Lab Data 01/13/23 15:12 01/13/23 15:12 Labs: Lab Results 01/13/23 01/13/23 01/13/23 Range/Units 15:12 15:12 15:12 WBC 5.9 (4.5-11.0) X10^3/uL RBC 3.94 L (4.0-5.2) X10^6/uL Hgb 12.4 (12.0-16.0) g/dL Hct 36.3 (36-46) % MCV 92.3 (80-100) fL MCH 31.5 (26-34) PG MCHC 34.1 (30-36) % RDW 13.2 (11.6-14.8) % Plt Count 129 L (150-400) X10^3/uL Neut % (Auto) 62.1 (50-75) % Lymph % (Auto) 26.1 (25-40) % [place] % (Auto) 8.8 (3-14) % Eos % (Auto) 2.7 (2-4) % Baso % (Auto) 0.3 (0-2) % Neut # (Auto) 3700 (0408-9228) /uL Lymph # (Auto) 1500 (5288-8458) /uL [place] # (Auto) 500 (0-900) /uL Eos # (Auto) 200 (0-450) /uL Baso # (Auto) 0 (0-100) /uL PT 12.1 (10.1-12.7) SECONDS INR 1.1 (0.9-1.3) APTT 30 (26-36) SECONDS Sodium 137 (137-145) mmol/L Potassium 3.8 (3.4-5.1) mmol/L Chloride 101 (98-107) mmol/L Carbon Dioxide 30 (22-32) mmol/L BUN 18 H (7-17) mg/dL Creatinine 0.75 (0.52-1.04) mg/dL Estimated GFR > 60 (>60) mL/min BUN/Creatinine Ratio 24.0 H (6-22) Glucose 104 (80-110) mg/dL Calcium 9.0 (8.4-10.2) mg/dL Magnesium 2.1 (1.6-2.3) mg/dL Total Bilirubin 0.6 (0.2-1.3) mg/dL AST 28 (14-36) IU/L ALT 22 (<35) IU/L Alkaline Phosphatase 43 (38-126) U/L Total Creatine Kinase 107 (30-135) U/L CK-MB (CK-2) 1.00 (<2.37) ng/mL CK-MB (CK-2) Rel Index 0.9 L (1.5-5.0) % Troponin I < 0.012 (0.01-0.034) ng/mL Total Protein 7.2 (6.3-8.2) g/dL Albumin 4.3 (3.5-5.0) g/dL Globulin 2.9 (1.7-4.1) g/dL Albumin/Globulin Ratio 1.5 (1.0-2.8) Lipase 87 (23-300) U/L Urine Dip Bedside Urine Glucose Negative Bedside Urine Bilirubin - Negative Bedside Urine Ketone - Negative Urine Specific [place] 1.010 Bedside Urine Occult Blood - Negative Bedside Urine pH 7.5 Bedside Urine Protein - Negative Bedside Urine Urobilinogen - Negative Bedside Urine Nitrite - Negative Bedside Urine Leukocytes - Negative Esterase MDM Narrative Medical decision making narrative: 62-year-old female presenting with palpitations and chest tightness. On presentation, vital signs reassuring. Physical exam notable for well-appearing 62-year-old female who is in no acute distress, grocery reassuring cardiopulmonary exam, benign abdomen. Initial concern for primary cardiac arrhythmia, ACS, electrolyte derangement, SVT/atrial fibrillation, pulmonary embolism, medication effect. EKG obtained on presentation without evidence of acute ischemia, no significant arrhythmias noted, cardiac enzyme reassuring making ACS unlikely. Patient without significant risk factors for pulmonary embolism, no tachycardia, tachypnea, hypoxemia, and no significant shortness of breath arguing against pulmonary embolism, further evaluation for PE was deferred. On repeat evaluation, patient was able to ambulate without difficulty in the emergency department, no significant change in vital signs were noted. Discussed plan for discharge and close outpatient follow up with primary care p félix and Cardiology. Discussed plan for Holter monitor. Return precautions discussed. Discharge Plan Departure Patient Disposition: Home Clinical Impression: Heart palpitations Instructions: DI for Palpitations Activity Restrictions/Additional Instructions: *You have been diagnosed with palpitations *What to do: *Please follow up with your primary care provider in 2-3 days, call for an appointment. Let them know you were seen in the Emergency Department and that we ask that you be seen in follow up. We will electronically transmit a record of today's note if your PCP is in our system *Return to Emergency Department if you should have any new, worsening or concerning symptoms, such as [fever greater than 101 F, shaking chills, worsening pain, persistent vomiting or other bothersome symptoms] Prescriptions: No Action losartan 25 mg tablet See Rx Instructions .ROUTE .COMPLEX Dose Instruction: take one tablet by mouth daily Rx Instructions: take one half tablet by mouth daily [Vitamin D3] Qty: 0 lorazepam 0.5 mg tablet See Rx Instructions .ROUTE .COMPLEX Qty: 30 0RF Dose Instruction: TAKE 1 TABLET BY MOUTH EVERY DAY NEEDED FOR ANXIETY Rx Instructions: TAKE 1 TABLET BY MOUTH EVERY DAY NEEDED FOR ANXIETY estradiol 1 mg tablet 1 mg PO QDAY Qty: 90 5RF citalopram 40 mg tablet See Rx Instructions .ROUTE .COMPLEX Qty: 30 4RF Dose Instruction: take 1 tablet by mouth daily Rx Instructions: take 1 tablet by mouth daily levothyroxine 50 mcg tablet See Rx Instructions .ROUTE .COMPLEX Qty: 90 3RF Dose Instruction: TAKE ONE TABLET BY MOUTH ONE TIME DAILY Rx Instructions: TAKE ONE TABLET BY MOUTH ONE TIME DAILY hydrochlorothiazide 25 mg tablet 25 mg PO DAILY Qty: 7 0RF hydrochlorothiazide 25 mg tablet 25 mg PO DAILY Qty: 7 0RF Referrals: Siobhan Aquino ARNP [Primary Care Provider] - Stand Alone Forms: Patient Portal/API
== END 2023-01-13 18:48 | disposition home or self-care (01) ==
PROVIDERS: Emergency Provider Emergency Medicine; PCP Family Medicine
DX: R00.2 Palpitations (principal); R07.9 Chest pain, unspecified
CPT/HCPCS: 36415; 71045; 80053; 81003; 82550; 82553; 83690; 83735; 84484; 85025; 85610; 85730; 93005; 93010; 99284

== ENCOUNTER → 2023-01-18 11:24 | Outpatient (ROUT) | payer OTHER, SELFPAY ==
[2023-01-18 13:03] LABS: TSH w/ Reflex to FT4 2.13 uIU/mL (0.47-4.68)
== END ==
PROVIDERS: PCP Family Medicine; Visit Provider Nurse Practitioner Family
DX: R00.2 Palpitations (principal); E03.9 Hypothyroidism, unspecified
CPT/HCPCS: 36415; 84443

== ENCOUNTER 2023-02-20 21:51 | Emergency (ER) | payer OTHER, SELFPAY ==
[2023-02-20 21:56] VITALS: BP 161/80; PULSE 72; RESP 16; TEMP 36.4; O2SAT 99; BMI 23.0
--- NOTE | 2023-02-20 22:02 | DI.RAD.S_ITS ---
PROCEDURE: XR CHEST 1V INDICATIONS: chest pain TECHNIQUE: One view of the chest was acquired. COMPARISON: [facility], CR, XR CHEST 1V, 01/13/2023, 15:36. FINDINGS: Surgical changes and devices: None. Lungs and pleura: Lungs are clear. No pleural effusions or pneumothorax. Mediastinum: Mediastinal contours appear normal. Heart size is normal. Bones and chest wall: No suspicious bony lesions. Overlying soft tissues appear unremarkable. IMPRESSION: 1. No acute cardiopulmonary disease. Dictated by: Paul Bui M.D. on 02/20/2023 at 23:57 Approved by: Paul Bui M.D. on 02/20/2023 at 23:57
[2023-02-20] MEDS: ASPIRIN 81 MG CHEW TAB 324 MG PO (22:17)
[2023-02-20 22:20] VITALS: BP 142/85; PULSE 67; RESP 12; O2SAT 98
[2023-02-20 22:30] VITALS: BP 133/79; PULSE 66; O2SAT 99
[2023-02-20 22:43] LABS: Add Manual Diff / Slide Review NO; Basophils Absolute Auto 0 /uL (0-100); Basophils Percent Auto 0.7 % (0-2); Eosinophils Absolute Auto 200 /uL (0-450); Eosinophils Percent Auto 4.9 % (2-4); Hematocrit 40.1 % (36-46); Hemoglobin 13.9 g/dL (12.0-16.0); Lymphocytes Absolute Auto 1900 /uL (1100-4500); Mean Corpuscular HGB Conc 34.7 % (30-36); Mean Corpuscular Hemoglobin 31.2 PG (26-34); Mean Corpuscular Volume 89.7 fL (80-100); Monocytes Absolute Auto 400 /uL (0-900); Monocytes Percent Auto 9.4 % (3-14); Neutrophils Absolute Auto 2000 /uL (1500-7000); Platelet Count 125 X10^3/uL (150-400); Red Blood Cell Count 4.47 X10^6/uL (4.0-5.2); White Blood Cell Count 4.6 X10^3/uL (4.5-11.0)
[2023-02-20 22:44] LABS: Prothrombin Time 11.9 SECONDS (10.1-12.7)
[2023-02-20 22:47] LABS: PTT Partial Thromboplastin Tim 30 SECONDS (26-36)
[2023-02-20 22:50] LABS: Alanine Aminotransferase 27 IU/L (<35); Albumin 4.6 g/dL (3.5-5.0); Albumin Globulin Ratio 1.6 (1.0-2.8); Alkaline Phosphatase 51 U/L (38-126); Aspartate Aminotransferase 29 IU/L (14-36); BUN Creatinine Ratio 22.4 (6-22); Bilirubin Total 0.6 mg/dL (0.2-1.3); Blood Urea Nitrogen 15 mg/dL (7-17); Calcium 8.7 mg/dL (8.4-10.2); Carbon Dioxide 28 mmol/L (22-32); Chloride 101 mmol/L (98-107); Creatine Kinase 89 U/L (30-135); Estimated Glomerular Filt Rate > 60 mL/min (>60); Globulin 2.8 g/dL (1.7-4.1); Glucose 122 mg/dL (80-110); HEMOLYSIS 16 (0-50); Lipase 88 U/L (23-300); Magnesium 2.2 mg/dL (1.6-2.3); Potassium 3.6 mmol/L (3.4-5.1); Sodium 136 mmol/L (137-145); Total Protein 7.4 g/dL (6.3-8.2)
[2023-02-20 23:00] VITALS: BP 128/76; PULSE 105; O2SAT 99
[2023-02-20 23:01] LABS: Troponin I < 0.012 ng/mL (0.01-0.034)
--- NOTE | 2023-02-20 23:24 | PC.NURSE ---
Pt reports palpitations. Notified provider. Verbal order for repeat EKG. Strip also printed from continuous site monitor and placed in chart.
[2023-02-20 23:30] VITALS: BP 163/85; PULSE 66; O2SAT 98
[2023-02-21] VITALS: BP 126/66; PULSE 61; RESP 24; O2SAT 99
--- NOTE | 2023-02-21 00:26 | ED.ARRPALP ---
HPI - Arrhythmia/Palpitations General Chief Complaint: Arrhythmia/Palpitations Stated Complaint: Afib per pt, high BP Time Seen by Provider: 02/20/23 23:27 Source: patient Mode of arrival: Ambulatory History of Present Illness HPI narrative: 62-year-old patient with a history of prior SVT post cardiac ablation in 2013, hypothyroidism, postmenopausal, depression and hypertension presents with complaints of palpitation. Her apple watch his told her she is been in and out of atrial fibrillation over the last number of days starting on the evening of February 18. When she has the palpitations she feels generally unwell with heaviness radiating both arms and finds the palpitations uncomfortable. She was seen in the ER with similar complaints on January 17 with unremarkable workup at that time. She does not describe any events that will precipitate the palpitations. It does not seem to matter if she is at rest or moving. She does not describe any recent fevers, cough, chills, abdominal pain, vomiting or diarrhea. No recent viral syndromes. Does not consume caffeine at all. No recreational stimulant such as cocaine or methamphetamine. No herbal supplements, energy drinks or weight loss drugs Related Data Home Medications Medication Instructions Recorded Confirmed [Vitamin D3] ##0 02/01/17 07/21/21 losartan 25 mg tablet See Rx Instructions .Route .COMPLEX 07/21/21 07/21/21 Previous Rx's Medication Instructions Recorded lorazepam 0.5 mg tablet See Rx Instructions .Route 06/03/20 .COMPLEX #30 tabs estradiol 1 mg tablet 1 mg PO QDAY #90 tabs 09/29/20 citalopram 40 mg tablet See Rx Instructions .Route 02/08/22 .COMPLEX #30 tabs levothyroxine 50 mcg tablet See Rx Instructions .Route 06/24/22 .COMPLEX #90 tabs hydrochlorothiazide 25 mg tablet 25 mg PO DAILY #7 tabs 07/31/22 hydrochlorothiazide 25 mg tablet 25 mg PO DAILY #7 tabs 07/31/22 apixaban 5 mg tablet (Eliquis) 5 mg PO BID #60 tabs 02/21/23 metoprolol succinate 25 mg 25 mg PO DAILY #30 tabs 02/21/23 tablet,extended release 24 hr Allergies Allergy/AdvReac Type Severity Reaction Status Date / Time lisinopril Allergy Mild Cough Verified 06/23/21 08:53 erythromycin base Allergy Unknown Verified 09/24/20 14:32 [ERYTHROMYCIN BASE] Sulfa (Sulfonamide Allergy Unknown Verified 09/24/20 14:32 Antibiotics) [SULFA (SULFONAMIDE ANTIBIOTICS)] acetaminophen [From Percocet] AdvReac Verified 02/20/23 22:02 oxycodone [From Percocet] AdvReac Verified 02/20/23 22:02 Review of Systems Review of Systems Narrative: Pertinent positive and negative findings as per HPI Patient History Medical History Anxiety and depression (02/01/17) Chicken pox Constipation, chronic (2003) Depression Eczema Fibroids Hemorrhoids (1980) Herpes (1979) History of bilateral breast implants (02/21/17) History of cardiac radiofrequency ablation (RFA) (02/01/17) History of supraventricular tachycardia (02/01/17) Measles Mononucleosis (1978) Mumps Prediabetes Psoriasis (2011) PTSD (post-traumatic stress disorder) (2009) SVT (supraventricular tachycardia) (2014) Surgical History Anesthesia History of bilateral salpingo-oophorectomy (BSO) (2004) History of breast augmentation (2005) History of breast augmentation (2013) History of cardiac radiofrequency ablation (RFA) (2014) Status post hysterectomy (2003) Family History Father Esophageal varices Grandmother ALS (amyotrophic lateral sclerosis) Grandfather Emphysema/COPD Grandmother Emphysema/COPD Brother No problems noted. Grandfather No problems noted. Mother Hearing loss Vision loss Sister No problems noted. Sister No problems noted. Social History Smoking Status: Never smoker alcohol intake: current substance use type: does not use Smoking Status: Never smoker Substance Use Type: does not use Exam Initial Vital Signs Initial Vital Signs: Vital Signs Temperature 97.6 F 02/20/23 21:56 Pulse Rate 72 02/20/23 21:56 Respiratory Rate 16 02/20/23 21:56 Blood Pressure 161/80 H 02/20/23 21:56 Pulse Oximetry 99 02/20/23 21:56 Oxygen Delivery Method Room Air 02/20/23 21:56 General: Healthy appearing, in no acute distress. Able to give a complete and coherent history. Well-nourished well-developed HEENT: Moist mucous membranes, normal sclera with reactive pupils, Neck: No JVD, supple Respiratory: Lungs are clear to auscultation, no wheezing no rales no rhonchi. Full and symmetrical air movement Cardiac: Regular rate and rhythm no murmurs no bruits Abdomen: Soft, nontender, good bowel tones, no flank pain Skin: Warm and dry, no rashes Neurologic: Grossly neurologically intact with no obvious asymmetries or abnormalities Extremities: No trauma, well perfused Psych: Cooperative, appropriate insight and affect Course Orders Ordered: ED Orders 02/20/23 22:02 XR chest 1V Stat COVID19 -Nasal RAPID Stat EKG-12 Lead Stat 02/20/23 22:30 Complete Blood Count AUTO DIFF Stat Comprehensive Metabolic Panel Stat Lipase Stat Magnesium Stat PTT Partial Thromboplastin Drew Stat Prothrombin Time INR Stat Troponin & CK Cardiac Panel Stat Discontinued Medications Aspirin (Aspirin 81 Mg Chew Tab) 324 mg PO NOW ONE Stop: 02/20/23 22:03 Last Admin: 02/20/23 22:17 Dose: 324 mg Documented By: SB Vital Signs Vital signs: Vital Signs - 8 hr 02/20/23 21:56 02/20/23 22:20 02/20/23 22:20 Temperature 97.6 F Pulse Rate 72 67 Respiratory Rate 16 12 Blood Pressure 161/80 H 142/85 H Pulse Oximetry 99 98 Oxygen Delivery Method Room Air 02/20/23 22:30 02/20/23 22:30 02/20/23 23:00 Temperature Pulse Rate 66 Respiratory Rate Blood Pressure 133/79 128/76 Pulse Oximetry 99 Oxygen Delivery Method 02/20/23 23:00 02/20/23 23:30 02/20/23 23:30 Temperature Pulse Rate 105 H 66 Respiratory Rate Blood Pressure 163/85 H Pulse Oximetry 99 98 Oxygen Delivery Method Room Air MDM - Arrhythmia/Palpitations Lab Data 02/20/23 22:30 02/20/23 22:30 Labs: Lab Results 02/20/23 02/20/23 02/20/23 Range/Units 22:30 22:30 22:30 WBC 4.6 (4.5-11.0) X10^3/uL RBC 4.47 (4.0-5.2) X10^6/uL Hgb 13.9 (12.0-16.0) g/dL Hct 40.1 (36-46) % MCV 89.7 (80-100) fL MCH 31.2 (26-34) PG MCHC 34.7 (30-36) % RDW 13.0 (11.6-14.8) % Plt Count 125 L (150-400) X10^3/uL Neut % (Auto) 43.0 L (50-75) % Lymph % (Auto) 42.0 H (25-40) % [place] % (Auto) 9.4 (3-14) % Eos % (Auto) 4.9 H (2-4) % Baso % (Auto) 0.7 (0-2) % Neut # (Auto) 2000 (7102-1273) /uL Lymph # (Auto) 1900 (8181-6387) /uL [place] # (Auto) 400 (0-900) /uL Eos # (Auto) 200 (0-450) /uL Baso # (Auto) 0 (0-100) /uL PT 11.9 (10.1-12.7) SECONDS INR 1.0 (0.9-1.3) APTT 30 (26-36) SECONDS Sodium 136 L (137-145) mmol/L Potassium 3.6 (3.4-5.1) mmol/L Chloride 101 (98-107) mmol/L Carbon Dioxide 28 (22-32) mmol/L BUN 15 (7-17) mg/dL Creatinine 0.67 (0.52-1.04) mg/dL Estimated GFR > 60 (>60) mL/min BUN/Creatinine Ratio 22.4 H (6-22) Glucose 122 H (80-110) mg/dL Calcium 8.7 (8.4-10.2) mg/dL Magnesium 2.2 (1.6-2.3) mg/dL Total Bilirubin 0.6 (0.2-1.3) mg/dL AST 29 (14-36) IU/L ALT 27 (<35) IU/L Alkaline Phosphatase 51 (38-126) U/L Total Creatine Kinase 89 (30-135) U/L CK-MB (CK-2) TNP CK-MB (CK-2) Rel Index TNP Troponin I < 0.012 (0.01-0.034) ng/mL Total Protein 7.4 (6.3-8.2) g/dL Albumin 4.6 (3.5-5.0) g/dL Globulin 2.8 (1.7-4.1) g/dL Albumin/Globulin Ratio 1.6 (1.0-2.8) Lipase 88 (23-300) U/L MDM Narrative Medical decision making narrative: CC: Palpitations intermittently since the evening of February 18 Complicating co-morbidities: History of SVT post ablation, hypertension hypothyroidism Data collected from: patient, Medical records reviewed: Prior ER and family practice notes reviewed Differential considered: Supple palpitations, recurrent SVT, atrial fibrillation Exam documented above, pertinent findings include: Entirely benign exam Lab Test results independently reviewed as above. Pertinent findings: CBC is unremarkable Chemistries are unremarkable Troponin is undetectable TSH checked in December of this year is appropriate at 2.13 Independently reviewed EKG Initial EKG shows sinus rhythm with sinus arrhythmia and nonspecific ST T wave changes. EKG obtained during an episode of palpitations shows atrial flutter 2-1 block at a rate of [address] depression laterally. Imaging studies independently reviewed: Chest x-ray does not show any acute cardiopulmonary abnormality Consultations: Dr. Keys, cardiology. Her recommendation is to switch blood pressure treatment to metoprolol XL 25 mg for rate control as well. Begin Eliquis 5 mg b.i.d. and will follow-up with Dr. Wheatley. Treatments: Oral metoprolol, oral Eliquis Discussion: 62-year-old woman with a history of prior SVT ablation comes in with approximately 72 hours of intermittent atrial flutter. The episodes are lasting 30-60 seconds. Lab work is unremarkable including troponin. Care is reviewed with Cardiology and recommendation is for discharge home, [id number], anticoagulation and outpatient follow-up with Dr. Wheatley. As I was explaining all of this to the patient she does note that Dr. Wheatley was the physician that did her initial SVT ablation in 2013. Her questions are answered. Will ask her to stop her losartan to avoid episodes of hypotension. At this time she is safe for discharge home Discharge Plan Departure Patient Disposition: Home Clinical Impression: Paroxysmal atrial flutter Instructions: DI for Atrial Flutter Activity Restrictions/Additional Instructions: Thank you for coming in tonight You are having brief episodes of atrial flutter. Your blood work was quite reassuring there is no obvious blood chemistry explanation for these episodes. Your initial troponin is unremarkable. I do not suspect that this is an acute coronary syndrome/heart attack type event. I discussed your findings and case with Dr. Keys, our senior buyer planner on-call. Her recommendation was to go ahead and go home,. Your losartan, begin metoprolol to help with blood pressure as well as rate control and hopefully make some of these short episodes of atrial flutter less symptomatic for you. She also recommended beginning Eliquis for stroke prevention. I have given you prescriptions for both the metoprolol and the Eliquis. They have been electronically transmitted to [facility] in [place] Dr. Keys will let Dr. Wheatley know about the visit this evening and please do expect a call from Dr. Wheatley's office for a consultation visit. You may benefit from a repeat cardiac ablation this time for paroxysmal atrial fibrillation rather than SVT. If you find that you are getting worse or develop any new symptoms, please feel free to return to the emergency department for further evaluation. Prescriptions: New metoprolol succinate 25 mg tablet extended release 24 hr 25 mg PO DAILY Qty: 30 1RF Eliquis 5 mg tablet 5 mg PO BID Qty: 60 1RF No Action losartan 25 mg tablet See Rx Instructions .ROUTE .COMPLEX Dose Instruction: take one tablet by mouth daily Rx Instructions: take one half tablet by mouth daily [Vitamin D3] Qty: 0 lorazepam 0.5 mg tablet See Rx Instructions .ROUTE .COMPLEX Qty: 30 0RF Dose Instruction: TAKE 1 TABLET BY MOUTH EVERY DAY NEEDED FOR ANXIETY Rx Instructions: TAKE 1 TABLET BY MOUTH EVERY DAY NEEDED FOR ANXIETY estradiol 1 mg tablet 1 mg PO QDAY Qty: 90 5RF citalopram 40 mg tablet See Rx Instructions .ROUTE .COMPLEX Qty: 30 4RF Dose Instruction: take 1 tablet by mouth daily Rx Instructions: take 1 tablet by mouth daily levothyroxine 50 mcg tablet See Rx Instructions .ROUTE .COMPLEX Qty: 90 3RF Dose Instruction: TAKE ONE TABLET BY MOUTH ONE TIME DAILY Rx Instructions: TAKE ONE TABLET BY MOUTH ONE TIME DAILY hydrochlorothiazide 25 mg tablet 25 mg PO DAILY Qty: 7 0RF hydrochlorothiazide 25 mg tablet 25 mg PO DAILY Qty: 7 0RF Referrals: Siobhan Aquino ARNP [Primary Care Provider] - Stand Alone Forms: Patient Portal/API
[2023-02-21 00:30] VITALS: PULSE 66; RESP 20; O2SAT 98
[2023-02-21 00:38] VITALS: BP 122/75; PULSE 84; RESP 20; O2SAT 99
[2023-02-21 01:00] VITALS: BP 133/76; PULSE 65; O2SAT 99
[2023-02-21] MEDS: APIXABAN 5 MG TABLET PO (01:01)
[2023-02-21 01:02] VITALS: BP 133/76; PULSE 63
[2023-02-21] MEDS: METOPROLOL ER 25 MG TABLET PO (01:02)
== END 2023-02-21 01:19 | disposition home or self-care (01) ==
PROVIDERS: Emergency Provider Emergency Medicine; PCP Family Medicine
DX: I48.92 Unspecified atrial flutter (principal); R07.9 Chest pain, unspecified; Z79.01 Long term (current) use of anticoagulants
CPT/HCPCS: 36415; 71045; 80053; 82550; 83690; 83735; 84484; 85025; 85610; 85730; 93005; 99284

== ENCOUNTER → 2024-07-26 13:36 | Outpatient (CLI) | payer OTHER, SELFPAY ==
--- NOTE | 2024-07-26 14:17 | EKG_ITS ---
[address] [address] Test Date: 2024-07-26 Pat Name: Inna Levin Department: [facility] Room: Gender: Female Business Account Leader: ARLEN : 1960 Requested By: Order Number: [id number] Reading MD: Santiago Flores MD Measurements Intervals [place] Rate: 55 P: 65 DC: 166 QRS: 16 QRSD: 74 T: 63 QT: 436 QTc: 417 Interpretive Statements Sinus bradycardia Low voltage QRS Electronically Signed On 07-27-2024 4:52:35 PDT by Santiago Flores MD
== END ==
LOC: RESP 13:39
PROVIDERS: PCP Internal Medicine Geriatric Medicine; Referring Provider Plastic Surgery; Visit Provider Plastic Surgery
DX: Z01.818 Encounter for other preprocedural examination (principal)
CPT/HCPCS: 93005